=== PATIENT | female | born 1965 | race Caucasian/White ===

== ENCOUNTER → 2023-09-26 | Outpatient (CLI) | payer BC, SELFPAY ==
[2023-09-28 14:11] LABS: Lyme Scn Total Ab w/Rflx Negative (Negative)
== END | disposition home or self-care (01) ==
PROVIDERS: PCP Nurse Practitioner; Visit Provider Nurse Practitioner
DX: S80.862A Insect bite (nonvenomous), left lower leg, initial encounter (principal); W57.XXXA Bitten or stung by nonvenomous insect and other nonvenomous arthropods, initial encounter
CPT/HCPCS: 86618

== ENCOUNTER → 2025-01-23 | Outpatient (CLI) | payer BC, SELFPAY ==
--- OUTSIDE RECORDS SUMMARY | 2025-01-23 12:15 | XMS RPT_ITS | CCD ---
Author Organization [facility] CliniSymi Care Team Providers Care Figure Clerk Name Role Phone Sahara Copeland Primary Care Provider Ariel LYONS, Silvio Burrows Unavailable Sahara Copeland Primary Care Provider Ariel LYONS, Silvio Burrows Unavailable [phone] Maljimmie ALFARO, Marisela A Primary Care Provider Malys, Marisela A Primary Care Provider Silvio Tuttle MD Unavailable SILVIO TUTTLE Attending Unavailable MALYS, MARISELA Primary Care Unavailable SILVIO TUTTLE Referring Unavailable MALYS, MARISELA Primary Care Unavailable SILVIO TUTTLE Referring Unavailable SILVIO TUTTLE Attending Unavailable Mcdaniel STAMPING MACHINE OPERATOR, Albertina Attending Unavailable Mcdaniel STAMPING MACHINE OPERATOR, Albertina Primary Care Unavailable Mcdaniel STAMPING MACHINE OPERATOR-C, Albertina Primary Care Provider [phone] Mcdaniel STAMPING MACHINE OPERATOR-C, Albertina Attending Provider Mcdaniel STAMPING MACHINE OPERATOR-C, Albetrina Referring Provider Malys DO, Marisela A Primary Care Provider [phone] ASHLI ROTH Referring Unavailable MALYS, MARISELA A Primary Care Unavailable AVERELL DO~[id number], AVERELL EDWARDO Admitting Unavailable AVERELL DO, EDWARDO Primary Care Unavailable AVERELL DO~[id number], AVERELL EDWARDO Attending Unavailable AVERELL DO~[id number], AVERELL EDWARDO Admitting Unavailable MALYS, MARISELA A Primary Care Unavailable AVERELL DO~[id number], AVERELL EDWARDO Attending Unavailable AVERELL DO~[id number], AVERELL EDWARDO Attending Unavailable AVERELL DO~[id number], AVERELL EDWARDO Admitting Unavailable AVERELL DO, EDWARDO Primary Care Unavailable Allergies Allergy Classification Reported Allergen(s) Allergy Type Date of Onset Reaction(s) Facility (3 sources) diphenhydrAMINE Drug Allergy Other: See Comments [facility] Medications Current Medications Medication Drug Class(es) Dates Sig (Normalized) Sig (Original) acyclovir 50 mg/ml topical cream (2 sources) Herpesvirus Nucleoside Analog DNA Polymerase Inhibitor, Herpes Simplex Virus Nucleoside Analog DNA Polymerase Inhibitor, Herpes Zoster Virus Nucleoside Analog DNA Polymerase Inhibitor Start: 01-20-2025 acyclovir (ZOVIRAX) 5 % crea Indications: HSV-2 infection Apply 1 application to affected area five times a day. 5 g 2 01/20/2025 Active azithromycin 250 mg oral tablet (1 source) Macrolide Antimicrobial Start: 12-09-2024 take 2 tablets by mouth once daily, then take 1 tablet by mouth once daily at mealtime Azithromycin 250 mg tablet Active 250 mg PO daily 6 5 0 December 09, 2024 12:00am December 13, 2024 12:00am 2 po qd for 1 day then 1 po qd for 4 days with food or after eating estradiol 0.1 mg/ml vaginal cream (3 sources) Estrogen Start: 01-15-2025 estradiol (ESTRACE) 0.01 % (0.1 mg/gram) vaginal cream Indications: Vaginal atrophy Use 1 g vaginally two times a week. 42.5 g 2 01/15/2025 Active predniSONE 20 mg oral tablet (4 sources) Start: 01-17-2025 predniSONE (DELTASONE) 20 mg tablet 01/17/2025 Active Start: 10-25-2023 End: 12-05-2024 take 2 tablets by mouth twice daily as needed for pain, then take 1 tablet by mouth twice daily as needed for pain, then take 0.5 tablet by mouth once daily as needed for pain Prednisone 10 mg tablet Discontinued 20 mg PO TWICE A DAY as needed for shoulder pain 30 4 1 October 25, 2023 12:00am December 05, 2024 5:37pm Impingement of right shoulder Other specified joint disorders, right shoulder 2 po bid 4D,1 po bid for 4 D, 1 po qd for 4D 1/2 po qd for2 D Progesterone (14 sources) Progesterone Start: 04-25-2023 progesterone ( CPD) Indications: Hormone imbalance Progesterone Triturate 150mg: Dissolve 1 under the tongue qhs 30 Each 3 04/25/2023 Active Start: 04-24-2023 progesterone ( CPD) Indications: Hormone imbalance Progesterone Triturate 100mg: Dissolve 1 under the tongue qhs 60 Each 5 04/24/2023 Active Start: 03-08-2023 End: 04-24-2023 progesterone (CPD) Indicatio ns: Hormone imbalance Progesterone Triturate 100mg: Dissolve 1 under the tongue qhs 60 Each 0 03/08/2023 04/24/2023 Discontinued Start: 03-08-2023 progesterone ( CPD) Indications: Hormone imbalance Progesterone Triturate 100mg: Dissolve 1 under the tongue qhs 60 Each 0 03/08/2023 Active Start: 12-31-2021 End: 02-17-2023 progesterone (CPD) Indicatio ns: Hormone imbalance Progesterone Triturate 100mg: Dissolve 1 under the tongue qhs 60 Each 0 12/31/2021 02/17/2023 Discontinued Start: 12-31-2021 progesterone ( CPD) Indications: Hormone imbalance Progesterone Triturate 100mg: Dissolve 1 under the tongue qhs 60 Each 0 12/31/2021 Active Start: 04-15-2021 End: 12-31-2021 progesterone (CPD) Indicatio ns: Hormone imbalance Progesterone Triturate 100mg: Dissolve 1 under the tongue qhs 60 Each 3 04/15/2021 12/31/2021 Discontinued Progesterone Fredis ronized (PROGESTERONE PO) Take 150 mg by mouth 0 Active Comment on above: Progesterone Tritura te 100mg: Dissolve 1 under the tongue qhs Progesterone Tritura te 150mg: Dissolve 1 under the tongue qhs testosterone micronized (CPD) (7 sources) Start: 03-09-2023 testosterone micronized (CPD) Indications: Hormone imbalance Testosterone Cream 1%: Apply 0.1ml to inner thigh QAM. May also apply to clitoris and labia 20 minutes prior to intercourse. 60 Each 5 03/09/2023 Active Start: 02-17-2023 testosterone m icronized (CPD) Indications: Hormone imbalance Testosterone Cream 1%: Apply 0.1ml to inner thigh QAM. May also apply to clitoris and labia 20 minutes prior to intercourse. 60 Each 5 02/17/2023 Active Comment on above: Testosterone Cream 1 %: Apply 0.1ml to inner thigh QAM. May also apply to clitoris and labia 20 minutes prior to intercourse. valACYclovir 500 mg oral tablet (3 sources) Herpesvirus Nucleoside Analog DNA Polymerase Inhibitor, Herpes Simplex Virus Nucleoside Analog DNA Polymerase Inhibitor, Herpes Zoster Virus Nucleoside Analog DNA Polymerase Inhibitor Start: 01-17-2025 valACYclovir (VALTREX) 500 mg tablet Indications: HSV-2 infection Take 1 tablet daily for suppression or 1 tablet twice daily x 3d at first symptom of outbreak 90 tablet 3 01/17/2025 Active Problems Problem Classification Problem Date Documented Da te Episodic/Chronic E Codes: Natural/environment (9 sources) Tick bite; Translations: [Bitten or stung by nonvenomous insect and other nonvenomous arthropods, initial encounter] Onset: 01-20-2025 09-26-2023 Episodic Meningitis (except that caused by tuberculosis or sexually transmitted disease) (3 sources) Chronic meningitis; Translations: [CHRONIC MENINGITIS] Onset: 01-14-2025 Episodic Other ear and sense organ disorders (3 sources) Hearing loss; Translations: [Unspecified hearing loss, unspecified ear] Onset: 01-20-2025 01-20-2025 Chronic Other ear and sense organ disorders (2 sources) Hearing loss; Translations: [Impacted cerumen, unspecified ear] 12-05-2024 Episodic Other ear and sense organ disorders (5 sources) Impacted cerumen; Translations: [Impacted cerumen, bilateral] Onset: 01-20-2025 12-05-2024 Episodic Other ear and sense organ disorders (4 sources) Clicking tinnitus; Translations: [Tinnitus, unspecified ear] Onset: 01-20-2025 12-06-2024 Episodic Other ear and sense organ disorders (1 source) Tinnitus; Translations: [Tinnitus, unspecified ear] 12-09-2024 Episodic Other endocrine disorders (4 sources) Disorder of endocrine system; Translations: [Endocrine disorder, unspecified] Episodic Other infections; including parasitic (2 sources) Lyme disease, unspecified; Translations: [LYME DISEASE UNSPECIFIED] Onset: 01-22-2025 Episodic Other non-traumatic joint disorders (5 sources) Disorder of shoulder; Translations: [Other specified joint disorders, right shoulder] Onset: 01-20-2025 10-25-2023 Episodic Other screening for suspected conditions (not mental disorders or infectious disease) (14 sources) Cancer cervix screening status; Translations: [Encounter for screening for malignant neoplasm of cervix] Onset: 03-16-2023 02-17-2023 Episodic Residual codes; unclassified (4 sources) Menopause present; Translations: [Asymptomatic menopausal state] 02-17-2023 Episodic Residual codes; unclassified (2 sources) Asymptomatic menopausal state; Translations: [Asymptomatic menopausal state] Onset: 03-16-2023 Episodic Superficial injury; contusion (1 source) Insect bite (nonvenomous), left lower leg, initial encounter; Translations: [Insect bite (nonvenomous), left lower leg, initial encounter] Onset: 10-05-2023 Episodic Viral infection (2 sources) Herpes simplex type 2 infection; Translations: [Herpesviral infection, unspecified] 01-20-2025 Episodic Results Test Name Value Interpretation Reference Range Facility ISAMAR - CSFon 01-14-2025 Angiotensin Converting Enzyme CSF 2.8 U/L High 0.0-2.5 [facility] Comment on above: Result Comment: This test was developed and its performance characteristics determined by [facility]. It has not been cleared or approved by the [place] Food and Drug Administration. This test was performed in a CLIA certified laboratory and is intended for clinical purposes. Performed By: [facility] [address] [place] [address] Reports Analysis Manager: Wade Hsieh MD, PhD CLIA Number: [id number] Performed By: #### A CECSF #### Counts include 234 beds at the [facility] [address] [place], [place] [id number] VDRL - CSFon 01-14-2025 VDRL, CSF Non-Reactive Normal Non Nikki:<1:1 [facility] Comment on above: Order Comment: Perfo rmed at: BN - [facility] [address] [id number] Turning Machine Set Up Operator: Sary Garay MD, Phone: [phone] Performed By: #### V DRLCSF #### [facility] RESULTS Cell Count w/ Diff CSFon CSF Tube # 4 Normal [facility] Comment on above: Order Comment: CSF T ube acceptable for m ost CSF. Use Lav EDTA if grossly bloody. Performed By: #### C TDIFCS #### [facility] [address] [place], [place] [id number] Gran 15 % [facility] Comment on above: Order Comment: CSF T ube acceptable for m ost CSF. Use Lav EDTA if grossly bloody. Performed By: #### C TDIFCS #### [facility] [address] [place] [address] Lymphocytes/100 WBC (Bld) 73 % [facility] Comment on above: Order Comment: CSF T ube acceptable for m ost CSF. Use Lav EDTA if grossly bloody. Performed By: #### C TDIFCS #### [facility] [address] [place] [address] Others 12 % [facility] Comment on above: Order Comment: CSF T ube acceptable for m ost CSF. Use Lav EDTA if grossly bloody. Result Comment: mono s/macros Performed By: #### C TDIFCS #### [facility] [address] [place], [place] [id number] RBCs 635 /cumm [facility] Comment on above: Order Comment: CSF T ube acceptable for m ost CSF. Use Lav EDTA if grossly bloody. Performed By: #### C TDIFCS #### [place] [id number] WBCs 6 /cumm [facility] Comment on above: Order Comment: CSF T ube acceptable for m ost CSF. Use Lav EDTA if grossly bloody. Performed By: #### C TDIFCS #### [place] [address] Culture CSF w/ Gram Stainon 01-10-2025 Culture CSF w/ Gram Stain Culture Observations:--------- --- No growth after 3 days of incubation. Direct Exam: Small numbers of WBCs No organisms seen Susceptibility Data: [facility] Comment on above: Order Comment: FREDIS lee at additional charge when indicated Performed By: #### G LUCCSF, PROTCSF #### [facility] [address] [place] [address] Glucose - CSFon 01-10-2025 Glucose CSF 60 mg/dL Normal 40-70 [facility] Comment on above: Performed By: #### Belen LUCCSF, PROTCSF #### [facility] [address] [place] [address] Lab - Miscellaneouson 2024 Performing Lab [facility] Comment on above: Order Comment: B-2 M icroglobulin CSF Performed By: #### M ISC #### [facility] [address] [place] [address] Ref Range 0.0-2.4 mg/L [facility] Comment on above: Order Comment: B-2 M icroglobulin CSF Performed By: #### Darcy ISC #### [facility] [address] [place] [address] Result 2.2 mg/L [facility] Comment on above: Order Comment: B-2 M icroglobulin CSF Performed By: #### Darcy ISC #### [facility] [address] [place] [address] Result cont. [facility] Comment on above: Order Comment: B-2 M icroglobulin CSF Performed By: #### M ISC #### [facility] [address] [place], [place] [id number] Test Name BETA-2 MICROGLOBULIN , CSF [facility] Comment on above: Order Comment: B-2 M icroglobulin CSF Performed By: #### M ISC #### [facility] [address] [place], [place] [id number] Lab - Miscellaneous 1on Performing Lab [facility] Comment on above: Order Comment: Paran enplastic Auto AB CS F Performed By: #### G LUCCSF, PROTCSF #### [facility] [address] [place] [address] Ref Range Negative Invalid Interpretation [facility] Comment on above: Order Comment: Paran enplastic Auto AB CS F Performed By: #### G LUCCSF, PROTCSF #### [facility] [address] [place] [address] Result Negative Invalid Interpretation [facility] Comment on above: Order Comment: Paran enplastic Auto AB CS F Performed By: #### G LUCCSF, PROTCSF #### [facility] [address] [place], [place] [id number] Result cont. THE COMPLETE REPORT WILL BE SENT FOR YOUR RECORDS [facility] Comment on above: Order Comment: Paran enplastic Auto AB CS F Performed By: #### G LUCCSF, PROTCSF #### [facility] [address] [place], [place] [id number] Test Name PARANEOPLASTIC PANEL , CSF Normal [facility] Comment on above: Order Comment: Paran enplastic Auto AB CS F Performed By: #### G LUCCSF, PROTCSF #### [place] [id number] Non-director digital advertising cytology studyon Non-gynecological cytology method study Pathology report.total SEE COMMENT Non-gynecologic Cytology Case: [id number] Authorizing Provider: Edwardo Carvajal DO Collected: 01/10/2025 0808 Ordering Location: [facility] Received: 01/10/2025 1407 Center Pathologist: Jose Potts MD Specimen: CEREBROSPINAL FLUID, CSF lumbar Path report.final diagnosis SEE COMMENT A. CEREBROSPINAL FLUID- CSF lumbar No malignant cells identified Specimen has increased population of lymphocytes at 1456 EDT Laboratory comment SEE COMMENT Slide(s) initially screened by SEAN Valentino at [facility] [address] [facility] [id number] By the signature on this report, the individual or group listed as making the Final Interpretation/Diagnos is certifies that they have reviewed this case. Path report.relevant Hx Chronic meningitis Path report.gross observation SEE COMMENT A. CEREBROSPINAL FLUID. Received <1 ml colorless clear fluid without particles in sterile tube . Laboratory comment SEE COMMENT A1 Slides Only (No Block) A1-1 Pap Stain NGYN ThinPrep Normal [facility] Protein - CSFon 01-10-2025 Protein CSF 45 mg/dL Normal 15-45 [facility] Comment on above: Performed By: #### G LUCCSF, PROTCSF #### [facility] [address] [place], [place] [phone] QuantiFERON -TB Gold Pluson 01-10-2025 QuantiFERON Criteria Comment Normal [facility] Comment on above: Order Comment: Quant iferon Draw kit requ ired! Shake each tube 10x just firmly enough to ensure entire inner surf of tube is coated w/ blood. Avoid vigorous shaking! Performed at: - [facility] [place] [address] [place], [place] [id number] Turning Machine Set Up Operator: Jamarcus Echols PhD, Phone: [phone] Result Comment: Olu tiFERON-TB Gold Plus is a qualitative indirect test for M tuberculosis infection (including disease) and is intended for use in conjunction with risk assessment, radiography, and other medical and diagnostic evaluations. The QuantiFERON-TB Gold Plus result is determined by subtracting the Nil value from either TB antigen (Ag) value. The Mitogen tube serves as a control for the test. Performed By: #### Q NFERNP #### [facility] RESULTS QuantiFERON Mitogen Value >10.00 [facility] Comment on above: Order Comment: Quant iferon Draw kit requ ired! Shake each tube 10x just firmly enough to ensure entire inner surf of tube is coated w/ blood. Avoid vigorous shaking! Performed at: [place] [address] Turning Machine Set Up Operator: Jamarcus Echols PhD, Phone: [phone] Performed By: #### Q NFERNP #### [facility] RESULTS QuantiFERON Nil Value 0.04 IU/mL Normal [facility] Comment on above: Order Comment: Quant iferon Draw kit requ ired! Shake each tube 10x just firmly enough to ensure entire inner surf of tube is coated w/ blood. Avoid vigorous shaking! Performed at: [place] [address] Turning Machine Set Up Operator: Jamarcus Echols PhD, Phone: [phone] Performed By: #### Q NFERNP #### [facility] RESULTS QuantiFERON TB1 Ag Value 0.05 IU/mL [facility] Comment on above: Order Comment: Quant iferon Draw kit requ ired! Shake each tube 10x just firmly enough to ensure entire inner surf of tube is coated w/ blood. Avoid vigorous shaking! Performed at: [place] [address] Turning Machine Set Up Operator: Jamarcus Echols PhD, Phone: [phone] Performed By: #### Q NFERNP #### [facility] RESULTS QuantiFERON TB2 Ag Value 0.03 IU/mL [facility] Comment on above: Order Comment: Quant iferon Draw kit requ ired! Shake each tube 10x just firmly enough to ensure entire inner surf of tube is coated w/ blood. Avoid vigorous shaking! Performed at: [place] [address] Turning Machine Set Up Operator: Jamarcus Echols PhD, Phone: [phone] Performed By: #### Q NFERNP #### [facility] RESULTS QuantiFERON-TB Gold Plus Negative Normal Negative [facility] Comment on above: Order Comment: Quant iferon Draw kit requ ired! Shake each tube 10x just firmly enough to ensure entire inner surf of tube is coated w/ blood. Avoid vigorous shaking! Performed at: [facility] [id number] Turning Machine Set Up Operator: Jamarcus Echols PhD, Phone: [phone] Result Comment: No r esponse to M tuberculosis antigens detected. Infection with M tuberculosis is unlikely, but high risk individuals should be considered for additional testing (ATS/IDSA/CDC Clinical Practice Guidelines, 2017). The reference range is an Antigen minus Nil result of <0.35 IU/mL. The specimen received for QuantiFERON testing was incubated by the ordering institution. Specific procedures outlined in our Directory of Services and in the package insert for the QuantiFERON Gold (In Tube) test must be followed to enable for proper stimulation of cells for the production of interferon gamma. Chemiluminescence immunoassay methodology Performed By: #### Q NFERNP #### [facility] RESULTS XR Lumbar Puncture Diagnosti [facility] 01-10-2025 XR Lumbar Puncture Diagnostics EXAMINATION: LUMBAR PUNCTURE UNDER FLUOROSCOPY CLINICAL INFORMATION: Visual disturbance. Headaches. Evaluate for meningitis. Prior to the procedure, the details of the examination were explained to the patient. She understands the risks, alternative, and benefits and wishes to proceed. Informed written consent is obtained and placed in the chart. ANESTHESIA: Local anesthesia was maintained with Lidocaine. FLUOROSCOPY DOSE: Ka,r = 0.363 mGy, 0.1 minutes, 0 cine run(s), and 1 fluoro spot(s) captured. PROCEDURE: The patient was placed prone on the fluoroscopic table. A site was picked for percutaneous lumbar puncture. This area was prepped and draped in the usual fashion. Under fluoroscopic guidance a 20 gauge spinal needle was advanced without difficulty into the CSF space posterior to the L3 vertebral body. The tap was mildly traumatic. Approximately 17 ml of clearing CSF was obtained. There were no immediate complications. IMPRESSION: 1. Successful lumbar puncture under fluoroscopy. The tap was mildly traumatic. Approximately 17 ml of blood tinged but clearing CSF was sent to the laboratory for analysis. Report Dictated on Authenticated by: David Rodriguez On: 01/10/2025 10:10 Read by: DAVID RODRIGUEZ MD, MD Date: 01/10/2025 10:10 [facility] Comment on above: Order Comment: branden nt needs PT / INR lab prior to test ACEon 01-09-2025 ISAMAR 33 U/L Normal 14-82 [facility] Comment on above: Order Comment: Stop administration of ca ptopril, enalapril, or lisinopril for 12 hours prior to venipuncture (reduces ISAMAR activity). Performed at: [facility] [id number] Turning Machine Set Up Operator: Jamarcus Echols PhD, Phone: [phone] Performed By: #### A CE, CCPIGGA #### [facility] RESULTS AMANDO -reflex to Titer & Patte rnon 01-09-2025 Antinuclear Antibodies, IFA Negative [facility] Comment on above: Order Comment: Perfo rmed at: [address] [id number] Turning Machine Set Up Operator: Jamarcus Echols PhD, Phone: [phone] Result Comment: Nega tive <1:80 Borderline 1:80 Positive >1:80 ICAP nomenclature: AC-0 For more information about Hep-2 cell patterns use ANApatterns.org, the official website for the International Consensus on Antinuclear Antibody (AMANDO) Patterns (ICAP). Performed By: #### A NA #### [facility] RESULTS C-Reactive Protein [facility] 01-09-2025 hs-CRP (Cardiac) 0.45 mg/L Normal 0.00-3.00 [facility] Comment on above: Order Comment: Perfo rmed at: [facility] [id number] Director: Jamarcus Echols PhD, Phone: [phone] Result Comment: Rela tive Risk for Future Cardiovascular Event Low <1.00 Average 1.00 - 3.00 High >3.00 Performed By: #### G LUCCSF, PROTCSF #### [facility] [address] [place] [address] CCP IgG/IgA Abson 01-09-2025 CCP Antibodies IgG/IgA 5 units Normal 0-19 [facility] Comment on above: Order Comment: Perfo rmed at: [facility] [address] [place], [place] [id number] Turning Machine Set Up Operator: Jamarcus Echols PhD, Phone: [phone] Result Comment: Nega tive <20 Weak positive 20 - 39 Moderate positive 40 - 59 Strong positive >59 Performed By: #### A CE, CCPIGGA #### [facility] RESULTS HIV-1/0/2 Ag/Ab 4th Gen w/ R eflexon 01-09-2025 HIV Screen 4th Generation with Reflex Non-Reactive Normal Non Reactive [facility] Comment on above: Order Comment: Perfo rmed at: [facility] [place], [place] [id number] Director: Jamarcus Echols PhD, Phone: [phone] Result Comment: HIV- 1/HIV-2 antibodies and HIV-1 p24 antigen were NOT detected. There is no laboratory evidence of HIV infection. HIV Negative Performed By: #### G LUCCSF, PROTCSF #### [address] [address] Rheumatoid Factor (Quant)on 01-07-2025 Rheumatoid Factor <12 Normal <=13 [facility] Comment on above: Performed By: #### G LUCCSF, PROTCSF #### [place] [id number] Sed Rate - Westergrenon 07- Sed Rate 2 mm/hr Normal 0-20 [facility] Comment on above: Performed By: #### G LUCCSF, PROTCSF #### [place] [id number] MRI BRAIN IAC WO/W IVCONon 0 12-31-2024 MRI BRAIN IAC WO/W IVCON * * *Final Report* * * DATE OF EXAM: Dec 31 2024 2:47PM [facility] 0285 - MRI BRAIN IAC WO/W IVCON / PROCEDURE REASON: hearing loss, sudden right * * * * Physician Interpretation * * * * EXAMINATION: MRI BRAIN IAC WO/W IVCON CLINICAL HISTORY: Right ear. Loss and tinnitus. TECHNIQUE: Routine MRI of the brain and internal auditory canals without and with contrast. MQ: [id number] Contrast: 7.5 mL Elucirem IV COMPARISON: None. RESULT: IAC : There is no evidence of a mass in the region of either IAC or elsewhere in the posterior fossa. There is no abnormal enhancement is noted in the basilar cisterns, along the course of the 7/8 cranial nerve complexes, or in the region of the inner ear complexes. Inner ear structures appear to be within normal limits on the high resolution axial CISS sequence. There is no clear evidence of vascular compression. Acute Change: There is no evidence of restricted diffusion to suggest an acute infarct. Hemorrhage: No evidence of prior parenchymal hemorrhage on the gradient echo images. Mass Lesion/ Mass Effect: There is trace up to 3 mm right and 2 mm left cerebral hemispheric convexity smooth linear FLAIR hyperintensities, which represent small extra-axial subdural fluid collections less likely reactive changes. There is diffuse linear pachymeningeal enhancement and thickening along the bilateral cerebral and cerebellar convexities, along the falx and the tentorial leaflets. Chronic Change: The white matter is within normal limits of signal intensity for age. Parenchyma: No significant volume loss for age. The brain parenchyma is otherwise within normal limits of signal intensity and morphology. Ventricles: Normal caliber and morphology. Skull Base: Hypothalamic and pituitary region are grossly normal. Craniocervical junction is normal. No significant marrow replacement process. Other: The visualized paranasal sinuses and mastoid air cells are clear. The orbits and extracranial soft tissues are unremarkable. IMPRESSION: No evidence of a mass in the region of either IAC or elsewhere in the posterior fossa. Trace bilateral cerebral hemispheric convexity FLAIR hyperintensities, which may represent small extra-axial subdural fluid collections or less likely reactive change. Diffuse linear pachymeningeal enhancement and thickening along the bilateral cerebral and cerebellar convexities, along the falx and the tentorial leaflets. These findings are nonspecific but may be related to intracranial hypotension in the setting of small subdural fluid collections or may represent hypertrophic pachymeningitis. ACTIONABLE RESULT: FOLLOW-UP Acuity: Actionable Findings: Neurological System-BRAIN Routing Code: NI_1 Recommendation: Unlisted Recommendation (see report) TimeFrame: At the discretion of the clinical team. COMMUNICATION: Results will be communicated with the ordering provider via [employer] staff message by Imaging Support Services within 2 business days of report finalization. Algorithms for management of incidental imaging findings can be found on the [facility] Intranet Sharepoint site at: [email or web address] [email or web address] Certified Scrub Tech: UMBERTO Transcribe Date/Time: Dec 31 2024 3:01P Dictated by : JANELLE DURAN MD This examination was interpreted and the report reviewed and electronically signed by: JANELLE DURAN MD on Dec 31 2024 3:40PM EST [id number] ACTIONABLE Invalid Interpretation Code [facility] Lyme Screen W/Reflex WBon LYME SCREEN Ab Negative Normal Negative [facility] Comment on above: Result Comment: Lyme antibodies not detected. Reflex testing is not indicated. No laboratory evidence of infection with B. burgdorferi (Lyme disease). Negative results may occur in patients recently infected (less than or equal to 14 days) with B. burgdorferi. If recent infection is suspected, repeat testing on a new sample collected in 7 to 14 days is recommended. Performed at: [facility] [id number] Turning Machine Set Up Operator: Jamarcus Echols PhD, Phone: [phone] Performed By: #### L [id number] #### [facility] [address]. [place], [place], [id number] No Panel InformationOrdered By: Albertina Mcdaniel on 09-26-2023 Lyme Disease Total Antibody Negative Negative [facility] Comment on above: Lyme antibodies not detected. Reflex testing is notindicated.No laboratory evidence of infection with B. burgdorferi(Lyme disease). Negative results may occur in patientsrecently infected (less than or equal to 14 days) with B.burgdorferi. If recent infection is suspected, repeattesting on a new sample collected in 7 to 14 days isrecommended.Performed at: [facility] [id number] Director: Jamarcus Echols PhD, Phone: [phone] DBT Breast - bilateral scree ningon 04-14-2023 No mammographic evidence of malignancy. ASSESSMENT: Category 1 Negative RECOMMENDATION: Routine screening mammogram in 1 year. Bilateral CANCER RISK ASSESSMENT: This risk assessment is based on patient provided information collected in a risk survey taken at the time of this examination. LIFETIME BREAST CANCER RISK: [place]: 18.17% - If greater than or equal to 20%, consider annual mammogram and annual screening Breast MRI or follow up in high risk clinic. Is the patient at elevated risk based on the HBOC criteria? NCCN HBOC Guidelines: 100% (Hereditary Breast and Ovarian Cancer) - If 100%, consider genetic counseling and testing with high risk follow up. Is the patient at elevated risk based on the Lopez Syndrome criteria? NCCN Lopez: 0% - If 100%, consider genetic counseling and testing with high risk follow up. Report Dictated on Electronically Signed By: David Gusman MD Electronically Signed Date/Time: 04/14/2023 1:42 PM EDT [facility] Patient Name: LUCY MONTERO : 1965 Exam Date/Time: 04/14/2023 13:15 Procedure: BI MAMMOGRAM SCREENING TOMOSYNTHESIS BILATERAL Ordering Provider: TUTTLE SUSAN Reason For Exam: screening Image views: 2D Bilateral CC and MLO views were acquired. 3D Bilateral CC and MLO views were acquired. Images were reviewed with CAD. Markings on images: BB's = Nipples; skin lesions Open tonkawa = Palpable Line = Scar COMPARISON: 11/19/2020 and prior TISSUE DENSITY: BIRADS B - There are scattered fibroglandular densities. FINDINGS: No suspicious masses, architectural distortions or suspiciously clustered microcalcifications are identified. There is no evidence of skin thickening or nipple retraction. There are no significant changes when compared with prior studies. [facility] David Gusman MD - 04/14/2023 Patient Name: LUCY MONTERO : 1965 Exam Date/Time: 04/14/2023 13:15 Procedure: BI MAMMOGRAM SCREENING TOMOSYNTHESIS BILATERAL Ordering Provider: TUTTLE SUSAN Reason For Exam: screening Image views: 2D Bilateral CC and MLO views were acquired. 3D Bilateral CC and MLO views were acquired. Images were reviewed with CAD. Markings on images: BB's = Nipples; skin lesions Open tonkawa = Palpable Line = Scar COMPARISON: 11/19/2020 and prior TISSUE DENSITY: BIRADS B - There are scattered fibroglandular densities. FINDINGS: No suspicious masses, architectural distortions or suspiciously clustered microcalcifications are identified. There is no evidence of skin thickening or nipple retraction. There are no significant changes when compared with prior studies. IMPRESSION: No mammographic evidence of malignancy. ASSESSMENT: Category 1 Negative RECOMMENDATION: Routine screening mammogram in 1 year. Bilateral CANCER RISK ASSESSMENT: This risk assessment is based on patient provided information collected in a risk survey taken at the time of this examination. LIFETIME BREAST CANCER RISK: [place]: 18.17% - If greater than or equal to 20%, consider annual mammogram and annual screening Breast MRI or follow up in high risk clinic. Is the patient at elevated risk based on the HBOC criteria? NCCN HBOC Guidelines: 100% (Hereditary Breast and Ovarian Cancer) - If 100%, consider genetic counseling and testing with high risk follow up. Is the patient at elevated risk based on the Lopez Syndrome criteria? NCCN Lopez: 0% - If 100%, consider genetic counseling and testing with high risk follow up. Report Dictated on Electronically Signed By: David Gusman MD Electronically Signed Date/Time: 04/14/2023 1:42 PM EDT [facility] Radiology Study observation (narrative) [employer] [facility] DBT Breast - bilateral scree ningOrdered By: David Gusman on 04-14-2023 [employer] Work Phone: DEXA BONE DENSITY AXIAL SKEL ETONon 03-16-2023 DEXA BONE DENSITY AXIAL SKELETON Patient Name: LUCY MONTERO : 1965 Exam Date/Time: 03/16/2023 13:08 Procedure: DEXA BONE DENSITY AXIAL SKELETON Ordering Provider: ARIEL, , SILVIO Reason For Exam: screening DXA BONE DENSITOMETRY: CLINICAL INDICATION: Asymptomatic post-menopausal status. Screening for osteoporosis. COMPARISON: 11/19/2020 TECHNIQUE: Quantitative bone mineral densitometry of the hip and lumbar spine was performed with a dual energy x-ray observed absorptiometry device - Quick Key at some institutions, HOLOGIC at others. Regions of interest were obtained through the proximal femur and compared to the normal value of young adult women. Regions of interest were also obtained through the lumbar vertebrae with an average value determined and compared to the normal value of young adult women. The difference between your measured bone density and the bone density of a normal young woman is expressed in standard deviations as the T score. Similarly, your measured bone density is also compared to age and race matched values, and expressed in standard deviations as the Z score. According to World Health Organization criteria: T-score of -1.0 or higher is normal. T-score between -1.1 to < -2.5 is low bone density or osteopenia. T-score of -2.5 or lower is abnormally low, compatible with osteoporosis. T-score of -2.5 or less plus fragility fracture indicates severe osteoporosis. FINDINGS: Femoral neck LEFT Density: 0.804 g/cm2 T-score: -0.4 Z-score: 0.7 Total Hip LEFT Density: 1.021 g/cm2 T-score: 0.6 Z-score: 1.3 Comparison from prior examination: The bone mineralization has not significantly changed when compared to the previous study. Spine: L1-L4 Density 1.088 g/cm2 T-score: 0.4 Z-score: 1.5 Comparison from prior examination: The bone mineralization has not significantly changed when compared to the previous study. IMPRESSION: 1. Normal bone mineralization. 2. The bone mineralization has not significantly changed when compared to the previous study. FRACTURE RISK: The estimated 10 year risk for a hip fracture is 0.3% and for a major osteoporosis-related fracture is 9.1%. (FRAX web version 3.11). RECOMMENDATIONS: General recommendations for prevention of bone loss include: 4379-7206 mg calcium intake per day for adults >50yrs, and no history of renal calculi 800-1000 IU of vitamin D3 per day for adults >50yrs, and no history of renal calculi Weight bearing exercise Discontinue smoking Avoid excessive use of caffeine, soft drinks, and alcoholic beverages In addition, balance training and fall prevention programs can help reduce the risk of fractures Pharmacologic treatment recommendations: Initiate pharmacologic treatment in patients with hip or vertebral fracture. In those with T scores In postmenopausal women and men age 50 or older with low bone mass (T score between -1.0 and -2.5 [osteopenia]) at the femoral neck, total hip, or lumbar spine by DXA have a 10 year hip fracture probability >/= 3% or a 10 year major osteoporosis-related fracture probability >/= 20% based on the [place]-adapted WHO fracture risk model (FRAX). Current FDA-approved pharmacologic options for osteoporosis treatment include bisphosphonates (Fosamax), ibandronate (Boniva), risedronate (Actonel), zoledronic acid (Reclast), estrogens and other hormonal therapies (Evista), parathyroid hormone (Forteo), and denosumab (Prolia). Initiation of pharmacologic therapy should happen only after thorough medical evaluation, discussion of risks and benefits, and with regular monitoring of the therapeutic regimen. Follow-up recommendations: Patients with osteoporosis or or at high risk for fracture should have follow-up bone density tests. For Medicare patients, routine testing is allowed every 2 years. Patients who have low bone mass (T score -2.0 to -2.49), who are currently on treatment for low bone mass, or having risk factors for accelerated bone loss (glucocorticoids, aromatase inhibitors, etc.), consider repeat DXA in 1-2 years. Patients with osteopenia and no risk factors may consider follow-up every 3-5 years. References: National Osteoporosis Foundation. Clinician's Guide to Prevention and Treatment of Osteoporosis. Osteoporosis International. Whyte, 2014. DXA Scan Screening, Reporting (FRAX Score) and Follow-up. Sheila of Knowledge Evidence - based Summaries. [facility] [employer] for Education and Research 2017. Report Dictated on Electronically Signed By: David Rodriguez MD Electronically Signed Date/Time: 03/16/2023 3:28 PM EDT Normal [facility] DXA Skeletal system.axial Vi ews for bone densityon 03-16-2023 1. Normal bone mineralization. 2. The bone mineralization has not significantly changed when compared to the previous study. FRACTURE RISK: The estimated 10 year risk for a hip fracture is 0.3% and for a major osteoporosis-related fracture is 9.1%. (FRAX web version 3.11). RECOMMENDATIONS: General recommendations for prevention of bone loss include: 5364-1309 mg calcium intake per day for adults >50yrs, and no history of renal calculi 800-1000 IU of vitamin D3 per day for adults >50yrs, and no history of renal calculi Weight bearing exercise Discontinue smoking Avoid excessive use of caffeine, soft drinks, and alcoholic beverages In addition, balance training and fall prevention programs can help reduce the risk of fractures Pharmacologic treatment recommendations: Initiate pharmacologic treatment in patients with hip or vertebral fracture. In those with T scores In postmenopausal women and men age 50 or older with low bone mass (T score between -1.0 and -2.5 [osteopenia]) at the femoral neck, total hip, or lumbar spine by DXA have a 10 year hip fracture probability >/= 3% or a 10 year major osteoporosis-related fracture probability >/= 20% based on the [place]-adapted WHO fracture risk model (FRAX). Current FDA-approved pharmacologic options for osteoporosis treatment include bisphosphonates (Fosamax), ibandronate (Boniva), risedronate (Actonel), zoledronic acid (Reclast), estrogens and other hormonal therapies (Evista), parathyroid hormone (Forteo), and denosumab (Prolia). Initiation of pharmacologic therapy should happen only after thorough medical evaluation, discussion of risks and benefits, and with regular monitoring of the therapeutic regimen. Follow-up recommendations: Patients with osteoporosis or or at high risk for fracture should have follow-up bone density tests. For Medicare patients, routine testing is allowed every 2 years. Patients who have low bone mass (T score -2.0 to -2.49), who are currently on treatment for low bone mass, or having risk factors for accelerated bone loss (glucocorticoids, aromatase inhibitors, etc.), consider repeat DXA in 1-2 years. Patients with osteopenia and no risk factors may consider follow-up every 3-5 years. References: National Osteoporosis Foundation. Clinician's Guide to Prevention and Treatment of Osteoporosis. Osteoporosis International. Whyte, 2014. DXA Scan Screening, Reporting (FRAX Score) and Follow-up. Sheila of Knowledge Evidence - based Summaries. [facility] [employer] for Education and Research 2017. Report Dictated on Electronically Signed By: David Rodriguez MD Electronically Signed Date/Time: 03/16/2023 3:28 PM EDT [facility] 1965 [id number] Exam Date/Time: 03/16/2023 13:08 Procedure: DEXA BONE DENSITY AXIAL SKELETON Ordering Provider: TUTTLE SUSAN Reason For Exam: screening DXA BONE DENSITOMETRY: CLINICAL INDICATION: Asymptomatic post-menopausal status. Screening for osteoporosis. COMPARISON: 11/19/2020 TECHNIQUE: Quantitative bone mineral densitometry of the hip and lumbar spine was performed with a dual energy x-ray observed absorptiometry device - Quick Key at some institutions, HOLOGIC at others. Regions of interest were obtained through the proximal femur and compared to the normal value of young adult women. Regions of interest were also obtained through the lumbar vertebrae with an average value determined and compared to the normal value of young adult women. The difference between your measured bone density and the bone density of a normal young woman is expressed in standard deviations as the T score. Similarly, your measured bone density is also compared to age and race matched values, and expressed in standard deviations as the Z score. According to World Health Organization criteria: T-score of -1.0 or higher is normal. T-score between -1.1 to < -2.5 is low bone density or osteopenia. T-score of -2.5 or lower is abnormally low, compatible with osteoporosis. T-score of -2.5 or less plus fragility fracture indicates severe osteoporosis. FINDINGS: Femoral neck LEFT Density: 0.804 g/cm2 T-score: -0.4 Z-score: 0.7 Total Hip LEFT Density: 1.021 g/cm2 T-score: 0.6 Z-score: 1.3 Comparison from prior examination: The bone mineralization has not significantly changed when compared to the previous study. Spine: L1-L4 Density 1.088 g/cm2 T-score: 0.4 Z-score: 1.5 Comparison from prior examination: The bone mineralization has not significantly changed when compared to the previous study. [employer] David Rodriguez MD - 03/16/2023 Patient Name: LUCY MONTERO : 1965 [facility]#: [id number] Exam Date/Time: 03/16/2023 13:08 Procedure: DEXA BONE DENSITY AXIAL SKELETON Ordering Provider: TUTTLE SUSAN Reason For Exam: screening DXA BONE DENSITOMETRY: CLINICAL INDICATION: Asymptomatic post-menopausal status. Screening for osteoporosis. COMPARISON: 11/19/2020 TECHNIQUE: Quantitative bone mineral densitometry of the hip and lumbar spine was performed with a dual energy x-ray observed absorptiometry device - Quick Key at some institutions, HOLOGIC at others. Regions of interest were obtained through the proximal femur and compared to the normal value of young adult women. Regions of interest were also obtained through the lumbar vertebrae with an average value determined and compared to the normal value of young adult women. The difference between your measured bone density and the bone density of a normal young woman is expressed in standard deviations as the T score. Similarly, your measured bone density is also compared to age and race matched values, and expressed in standard deviations as the Z score. According to World Health Organization criteria: T-score of -1.0 or higher is normal. T-score between -1.1 to < -2.5 is low bone density or osteopenia. T-score of -2.5 or lower is abnormally low, compatible with osteoporosis. T-score of -2.5 or less plus fragility fracture indicates severe osteoporosis. FINDINGS: Femoral neck LEFT Density: 0.804 g/cm2 T-score: -0.4 Z-score: 0.7 Total Hip LEFT Density: 1.021 g/cm2 T-score: 0.6 Z-score: 1.3 Comparison from prior examination: The bone mineralization has not significantly changed when compared to the previous study. Spine: L1-L4 Density 1.088 g/cm2 T-score: 0.4 Z-score: 1.5 Comparison from prior examination: The bone mineralization has not significantly changed when compared to the previous study. IMPRESSION: 1. Normal bone mineralization. 2. The bone mineralization has not significantly changed when compared to the previous study. FRACTURE RISK: The estimated 10 year risk for a hip fracture is 0.3% and for a major osteoporosis-related fracture is 9.1%. (FRAX web version 3.11). RECOMMENDATIONS: General recommendations for prevention of bone loss include: 4742-6635 mg calcium intake per day for adults >50yrs, and no history of renal calculi 800-1000 IU of vitamin D3 per day for adults >50yrs, and no history of renal calculi Weight bearing exercise Discontinue smoking Avoid excessive use of caffeine, soft drinks, and alcoholic beverages In addition, balance training and fall prevention programs can help reduce the risk of fractures Pharmacologic treatment recommendations: Initiate pharmacologic treatment in patients with hip or vertebral fracture. In those with T scores spine by DXA In postmenopausal women and men age 50 or older with low bone mass (T score between -1.0 and -2.5 [osteopenia]) at the femoral neck, total hip, or lumbar spine by DXA have a 10 year hip fracture probability >/= 3% or a 10 year major osteoporosis-related fracture probability >/= 20% based on the [place]-adapted WHO fracture risk model (FRAX). Current FDA-approved pharmacologic options for osteoporosis treatment include bisphosphonates (Fosamax), ibandronate (Boniva), risedronate (Actonel), zoledronic acid (Reclast), estrogens and other hormonal therapies (Evista), parathyroid hormone (Forteo), and denosumab (Prolia). Initiation of pharmacologic therapy should happen only after thorough medical evaluation, discussion of risks and benefits, and with regular monitoring of the therapeutic regimen. Follow-up recommendations: Patients with osteoporosis or or at high risk for fracture should have follow-up bone density tests. For Medicare patients, routine testing is allowed every 2 years. Patients who have low bone mass (T score -2.0 to -2.49), who are currently on treatment for low bone mass, or having risk factors for accelerated bone loss (glucocorticoids, aromatase inhibitors, etc.), consider repeat DXA in 1-2 years. Patients with osteopenia and no risk factors may consider follow-up every 3-5 years. References: National Osteoporosis Foundation. Clinician's Guide to Prevention and Treatment of Osteoporosis. Osteoporosis International. Whyte, 2014. DXA Scan Screening, Reporting (FRAX Score) and Follow-up. Sheila of Knowledge Evidence - based Summaries. [employer] for Education and Research 2017. Report Dictated on Electronically Signed By: David Rodriguez MD Electronically Signed Date/Time: 03/16/2023 3:28 PM EDT [facility] Study observation (narrative) [facility] DXA Skeletal system.axial Vi ews for bone densityOrdered By: David Rodriguez on 03-16-2023 [facility] Work Phone: MG Breast Tomosynthesis Scr Blon 11-19-2020 MG Breast Tomosynthesis Scr Bl Patient Name: LUCY MONTERO Mammography ACCESSION EXAM DATE/TIME PROCEDURE ORDERING PROVIDER [phone] 11/19/2020 09:59 EDT MG Breast Tomosynthesis ARIEL BUSCH SILVIO BI Scr CPT code [id number] Reason For Exam (MG Breast Tomosynthesis BI Scr) screening Report TIME SINCE LAST MAMMOGRAM: Last mammogram was performed 1 year and 3 months ago. REASON FOR EXAM: screening, asymptomatic. PROCEDURE: MG BREAST TOMOSYNTHESIS BL SCR: NOVEMBER 19, 2020 - 2D/3D Procedure 3D Bilateral CC and MLO view(s) were taken. 2D Bilateral CC and MLO view(s) were taken. Prior study comparison: August 09, 2019, bilateral MG breast tomosynthesis bl scr performed at [facility]. March 23, 2018, bilateral MG breast tomosynthesis bl scr performed at [facility]. September 30, 2016, bilateral MG mammogram digital screening performed at [facility]. TISSUE DENSITY: BIRADS B - There are scattered fibroglandular densities. . FINDINGS: No suspicious masses, architectural distortions or suspiciously clustered microcalcifications are identified. There are no significant changes when compared with prior studies. IMPRESSION: No mammographic evidence of malignancy. Markings on images: BB's = Nipples; skin lesions Open tonkawa = Palpable Line = Scar 2D digital mammography and tomosynthesis imaging were performed and reviewed with CAD. ASSESSMENT: Category 1 Negative RECOMMENDATION: Routine screening mammogram of both breasts in 1 year. . Report Dictated on Mammography Report Cancer Risk Assessment: This risk assessment is based on patient provided information collected in a risk survey taken at the time of this examination. Lifetime breast cancer risk: 17.74% - If greater than or equal to 20%, consider annual mammogram and annual screening Breast MRI or follow up in high risk clinic. Is the patient at elevated risk based on the HBOC criteria? No (Hereditary Breast and Ovarian Cancer) - If yes, consider genetic counseling and testing with high risk follow up. HNPCC mutation risk (Lopez Syndrome): 1% - if greater than or equal to 5%, consider genetic counseling, testing and screening colonoscopy. Final Signed Date and Time: 11/19/2020 11:33 am Signed by: MD FENG KERISTEN L [facility] OT Bone Density DEXA Axial S abdullahi 11-19-2020 OT Bone Density DEXA Axial Skeleton Patient Name: LUCY MONTERO Bone Density ACCESSION EXAM DATE/TIME PROCEDURE ORDERING PROVIDER [id number] 11/19/2020 10:13 EDT OT Bone Density DEXA ARIEL JO-ANNSILVIO Ritchie Axial Skeleton CPT code 83120 Reason For Exam (OT Bone Density DEXA Axial Skeleton) screening for osteoporosis, menopause Report DXA BONE DENSITOMETRY: CLINICAL INDICATION: Asymptomatic post-menopausal status. Screening for osteoporosis. COMPARISON: None TECHNIQUE: Quantitative bone mineral densitometry of the hip and lumbar spine was performed with a dual energy x-ray observed absorptiometry device - [employer]. Regions of interest were obtained through the proximal femur and compared to the normal value of young adult women. Regions of interest were also obtained through the lumbar vertebrae with an average value determined and compared to the normal value of young adult woman. The difference between your measured bone density and the bone density of a normal young woman is expressed in standard deviations as the T score. Similarly, your measured bone density is also compared to age and race matched values, and expressed in standard deviations as the Z score. According to World Health Organization criteria: T-score of -1.0 or higher is normal. T-score between -1.1 to < -2.5 is low bone density or osteopenia. T-score of -2.5 or lower is abnormally low, compatible with osteoporosis. T-score of -2.5 or less plus fragility fracture indicates severe osteoporosis. FINDINGS: Femoral neck left Density: 0.873 g/cm2. T-score: 0.2 Z-score: 1.2 Total Hip left Density: 1.038 g/cm2. T-score: 0.8 Z-score: 1.4 Comparison from prior examination: N/A Spine: L1-L4 Density 1.106 g/cm2. T-score: 0.5 Z-score: 1.5 Comparison from prior examination: N/A Bone Density Report /3 Radius: Not measured IMPRESSION: Normal bone density. FRACTURE RISK: The estimated 10 year risk for a hip fracture is 0.1 % and for a major osteoporosis-related fracture is 5.2 %. (FRAX version 3.08). RECOMMENDATIONS (from the National Osteoporosis Foundation *) : General recommendations for prevention of bone loss include: 6969-3887 mg calcium intake per day for adults >50yrs, and no history of renal calculi 800-1000 IU of vitamin D3 per day for adults >50yrs, and no history of renal calculi Weight bearing exercise Discontinue smoking Avoid excessive use of caffeine, soft drinks, and alcoholic beverages. In addition, balance training and fall prevention programs can help reduce the risk of fractures. Pharmacologic treatment recommendations: Initiate pharmacologic treatment in patients with hip or vertebral fracture. In those with T scores by DXA In postmenopausal women and men age 50 or older with low bone mass (T score between -1.0 and -2.5 [osteopenia]) at the femoral neck, total hip, or lumbar spine by DXA and a 10 year hip fracture probability >/= 3% or a 10 year major osteoporosis-related fracture probability >/= 20% based on the [place]-adapted WHO fracture risk model (FRAX). Current FDA-approved pharmacologic options for osteoporosis treatment include bisphosphonates (Fosamax), ibandronate (Boniva), risedronate (Actonel), zoledronic acid (Reclast), estrogens and other hormonal therapies (Evista), parathyroid hormone (Forteo), and denosumab (Prolia). Initiation of pharmacologic therapy should happen only after thorough medical evaluation, discussion of risks and benefits, and with regular monitoring of the therapeutic regimen. Follow-up recommendations: Patients with osteoporosis or or at high risk for fracture should have follow-up bone density tests. For Medicare patients, routine testing is allowed every 2 years. Patients who have low bone mass (T score -2.0 to -2.49), who are currently on treatment for low bone mass, or having risk factors for accelerated bone loss (glucocorticoids, aromatase inhibitors, etc.), consider repeat DXA in 1-2 years. Patients with osteopenia and no risk factors may consider follow-up every 3-5 years. References: * National Osteoporosis Foundation. Clinician's Guide to Prevention and Treatment of Osteoporosis. Osteoporosis International. Whyte, 2014. DXA Scan Screening, Reporting (FRAX Score) and Follow-up. Sheila of Knowledge Evidence - based Summaries. Health [employer] for Education and Research. 2017 Bone Density Report Report Dictated on Workstation: [id number] Final Dictating Physician: MD GUPTA DIANE Signed Date and Time: 11/20/2020 2:17 pm Signed by: MD GUPTA DIANE Transcribed Date and Time: 11/20/2020 2:18 Normal [facility] Vital Signs Date Time Vital Sign Value Performing Clinician Drake connors 01-20-2025 09:46-0400 Body height 170.2 cm Silvio Tuttle MD Work Phone: [facility] 01-20-2025 09:46-0400 Body mass index (BMI) [Ratio] 25.06 kg/m2 Silvio Tuttle MD Work Phone: [facility] 01-20-2025 09:46-0400 Body weight 72.58 kg Silvio Tuttle MD Work Phone: [facility] 01-20-2025 09:46-0400 Diastolic blood pressure 74 mm[Hg] Silvio Tuttle MD Work Phone: [facility] 01-20-2025 09:46-0400 Systolic blood pressure 128 mm[Hg] Silvio Tuttle MD Work Phone: [facility] 12-09-2024 17:42-0400 Body height 172.72 cm Albertina Mcdaniel NP-C Work Phone: [facility] 12-09-2024 17:42-0400 Body mass index (BMI) [Ratio] 26.4 kg/m2 Albertina Mcdaniel NP-C Work Phone: [facility] 12-09-2024 17:42-0400 Body temperature 97.7 [degF] Albertina Mcdaniel NP-C Work Phone: [facility] 12-09-2024 17:42-0400 Body weight 78.92 kg Albertinaveronica Mcdaniel STAMPING MACHINE OPERATOR-C Work Phone: [facility] 12-09-2024 17:42-0400 Diastolic blood pressure 80 mm[Hg] Albertina Mcdaniel STAMPING MACHINE OPERATOR-C Work Phone: [facility] 12-09-2024 17:42-0400 Heart rate 91 /min Albertinaveronica Mcdaniel STAMPING MACHINE OPERATOR-C Work Phone: [facility] 12-09-2024 17:42-0400 Respiratory rate 18 /min Albertinaveronica Mcdaniel STAMPING MACHINE OPERATOR-C Work Phone: [facility] 12-09-2024 17:42-0400 SaO2% (BldA) [Mass fraction] 100 % Albertina Mcdaniel STAMPING MACHINE OPERATOR-C Work Phone: [facility] 12-09-2024 17:42-0400 Systolic blood pressure 130 mm[Hg] Albertina Mcdaniel STAMPING MACHINE OPERATOR-C Work Phone: [facility] 12-05-2024 11:29-0400 Body mass index (BMI) [Ratio] 26.4 kg/m2 Albertina Mcdaniel STAMPING MACHINE OPERATOR-C Work Phone: [facility] 12-05-2024 11:29-0400 Body temperature 97.9 [degF] Albertina Mcdaniel STAMPING MACHINE OPERATOR-C Work Phone: [facility] 12-05-2024 11:29-0400 Body weight 78.92 kg Albertina Mcdaniel STAMPING MACHINE OPERATOR-C Work Phone: [facility] 12-05-2024 11:29-0400 Diastolic blood pressure 70 mm[Hg] Albertina Mcdaniel STAMPING MACHINE OPERATOR-C Work Phone: [facility] 12-05-2024 11:29-0400 Heart rate 80 /min Albertinaveronica Mcdaniel STAMPING MACHINE OPERATOR-C Work Phone: [facility] 12-05-2024 11:29-0400 Respiratory rate 18 /min Albertinaveronica Mcdaniel STAMPING MACHINE OPERATOR-C Work Phone: [facility] 12-05-2024 11:29-0400 SaO2% (BldA) [Mass fraction] 98 % Albertina Mcdaniel STAMPING MACHINE OPERATOR-C Work Phone: [facility] 12-05-2024 11:29-0400 Systolic blood pressure 120 mm[Hg] Albertina Jonas STAMPING MACHINE OPERATOR-C Work Phone: [facility] 09-26-2023 17:02-0400 Body height 172.72 cm [facility] 09-26-2023 17:02-0400 Body mass index (BMI) [Ratio] 24.3 kg/m2 [facility] 09-26-2023 17:02-0400 Body temperature 97.3 [degF] [facility] 09-26-2023 17:02-0400 Body weight 72.57 kg [facility] 09-26-2023 17:02-0400 Diastolic blood pressure 70 mm[Hg] [facility] 09-26-2023 17:02-0400 Heart rate 86 /min [facility] 09-26-2023 17:02-0400 Respiratory rate 18 /min [facility] 09-26-2023 17:02-0400 SaO2% (BldA) [Mass fraction] 89 % [facility] 09-26-2023 17:02-0400 Systolic blood pressure 122 mm[Hg] [facility] 04-14-2023 13:12-0400 Body height 170.2 cm Silvio Tuttle MD Work Phone: [facility] 04-14-2023 13:12-0400 Body mass index (BMI) [Ratio] 23.49 kg/m2 Silvio Tuttle MD Work Phone: [facility] 04-14-2023 13:12-0400 Body weight 68.04 kg Silvio Tuttle MD Work Phone: [facility] 02-17-2023 10:31-0400 Body height 170.2 cm Silvio Tuttle MD Work Phone: [facility] 02-17-2023 10:31-0400 Body weight 74.84 kg Silvio Tuttle MD Work Phone: [facility] 02-17-2023 10:31-0400 Diastolic blood pressure 78 mm[Hg] Silvio Tuttle MD Work Phone: [facility] 02-17-2023 10:31-0400 Systolic blood pressure 122 mm[Hg] Silvio Tuttle MD Work Phone: [facility] Encounters Encounter Date Encounter Type Care Provider Facility Start: 01-21-2025 End: 01-21-2025 ambulatory AVERELL EDWARDO AVERELL DO~[id number] [facility] Start: 01-20-2025 End: 01-20-2025 Follow-up encounter [facility] Comment on above: Results Start: 01-20-2025 End: 01-20-2025 Patient encounter procedure [facility]vio Tuttle MD [facility] [employer] [facility] Comment on above: HSV-2 infection (Mile tiffany Dx) Start: 01-17-2025 End: 01-20-2025 Follow-up encounter Silvio Tuttle MD [facility] [employer] [facility] Comment on above: Results Start: 01-10-2025 End: 01-10-2025 ambulatory AVERELL EDWARDO AVERELL DO~[id number] [facility] Start: 01-07-2025 End: 01-07-2025 ambulatory AVERELL EDWARDO AVERELL DO~[id number] [facility] Start: 12-31-2024 ambulatory ASHLI Monique ility:[facility] Start: 12-31-2024 End: 12-31-2024 Subsequent hospital visit by physician [employer] [facility] (I-Stat/1.5t) Work Phone: Radiology Start: 12-09-2024 End: 12-09-2024 ambulatory Albertina Mcdaniel NP-C Work Phone: [facility] Start: 12-05-2024 End: 12-05-2024 ambulatory Albertina Mcdaniel STAMPING MACHINE OPERATOR-C Work Phone: [facility] Work Phone: Start: 09-26-2023 End: 09-26-2023 Patient encounter procedure [facility] Work Phone: Start: 09-26-2023 End: 09-26-2023 ambulatory Albertina Mcdaniel STAMPING MACHINE OPERATOR [facility] Work Phone: Start: 05-12-2023 Telephone encounter Silvio Tuttle MD Work Phone: [employer] [facility] Comment on above: Results Start: 04-24-2023 Refill Silvio sorto MD Work Phone: [facility] Start: 04-14-2023 End: 04-15-2023 Encounter for gynecological examination (general) (routine) without abnormal findings SILVIO TUTTLE [facility] Start: 04-14-2023 End: 04-15-2023 ambulatory SILVIO TUTTLE [facility] Comment on above: results Start: 04-14-2023 E-mail encounter fro m caregiver Silvio Tuttle MD Work Phone: [employer] [facility] Start: 04-14-2023 End: 04-14-2023 Patient encounter status Silvio Tuttle MD Work Phone: [facility] Start: 04-14-2023 End: 04-14-2023 Subsequent hospital visit by physician Silvio Tuttle MD Work Phone: [facility] Comment on above: Encounter for screen ing mammogram for malignant neoplasm of breast; Encounter for gynecological examination (general) (routine) without abnormal findings Start: 03-16-2023 End: 03-17-2023 ambulatory MARISELA HOOKER [facility] Start: 03-16-2023 End: 03-16-2023 Subsequent hospital visit by physician Silvio Tuttle MD Work Phone: [facility] Radiology Comment on above: Encounter for screen ing for osteoporosis; Asymptomatic menopausal state Start: 03-15-2023 Telephone encounter Silvio Tuttle MD Work Phone: [facility] Comment on above: Results Start: 03-06-2023 Patient encounter status Silvio Tuttle MD Work Phone: [facility] Start: 03-06-2023 Transcribe Orders Silvio Tuttle MD Work Phone: [facility] Comment on above: Asymptomatic menopau jamshid state (Primary Dx); Encounter for screening for osteoporosis; Encounter for screening mammogram for malignant neoplasm of breast; Encounter for gynecological examination (general) (routine) without abnormal findings Start: 02-17-2023 End: 02-17-2023 Female genitalia finding Silvio Tuttle MD Work Phone: [facility] Work Phone: Start: 02-17-2023 End: 02-17-2023 Patient encounter procedure Silvio Tuttle MD Work Phone: [facility] Comment on above: Gynecologic exam nor mal (Primary Dx); Cervical cancer screening; Breast cancer screening by mammogram; Screening for osteoporosis; Menopause; Screening for colon cancer; Hormone imbalance Start: 12-31-2021 Refill Saniya Jones PA-C Work Phone: [facility] Start: 11-19-2020 End: 11-19-2020 Subsequent hospital visit by physician Silvio Tuttle MD Work Phone: [facility] Comment on above: Arrived Start: 08-09-2019 End: 08-09-2019 Subsequent hospital visit by physician Silvio Tuttle Work Phone: [facility] Comment on above: Arrived Procedures Date Procedure Procedure Detail Performing Clinician Start: 01-15-2025 Adult depression scr eening assessment Silvio Tuttle MD Work Phone: Start: 04-14-2023 End: 04-14-2023 Screening digital breast tomosynthesis bi Silvio Tuttle MD Work Phone: Start: 03-16-2023 Dxa bone density pepper dy 1/> sites axial skel Silvio Tuttle MD Work Phone: Start: 02-18-2022 Lipid 1996 panel - S pratibha or Plasma Silvio Tuttle MD Work Phone: Start: 11-19-2020 Mammography Saniya huff PA-C Work Phone: Start: 11-18-2020 Adult depression scr eening assessment Saniya Jones PA-C Work Phone: Plan of Treatment Date Care Activity Detail Author Start: 01-15-2030 Screening for malign ant neoplasm of cervix Cervical Cancer Screening [facility] Start: 02-18-2028 HPV Testing HPV Testing [facility] Start: 02-18-2028 Pap Testing Pap Testing [facility] Start: 02-18-2028 Screening for malign ant neoplasm of cervix Cervical Cancer Screening [facility] Start: 2027 RSV Immunization age d 60 or older (1 - 1-dose 60+ series) RSV Immunization aged 60 or older (1 - 1-dose 60+ series) [facility] Start: 02-18-2027 Lipid 1996 panel - Serum or Plasma Lipid Screening [facility] Start: 02-18-2027 Lipid panel Lipid Screening [facility] Start: 01-29-2026 Screening for malign ant neoplasm of colon Colorectal Cancer Screening [facility] Comment on above: Postponed from 08/24 (Declined at this time) Start: 01-15-2026 Depression Screening Depression Scre ening [facility] Start: 01-03-2026 Screening for malign ant neoplasm of breast Mammogram Screening [facility] Start: 11-18-2025 PAP TESTING PAP TESTING [facility] Start: 02-18-2025 Diabetes Screening Diabetes Screenin g [facility] Start: 02-10-2025 Influenza vaccination Influenza Vacc ine (#1) [facility] Start: 01-15-2025 End: 01-15-2025 Patient encounter procedure 01/15/2025 8:45 AM EDT Office Visit [facility] [address] [address] Silvio Tuttle MD [address] [facility] [address] [place] [address] Annual [facility] Comment on above: Annual Start: 04-14-2024 Mammography Mammogram Screening [facility] Start: 04-14-2024 Screening for malign ant neoplasm of breast [facility] Start: 02-18-2024 COLORECTAL CANCER SCREENING COLORECTAL CANCER SCREENING [facility] Start: 02-18-2024 FECAL OCCULT BLOOD FECAL OCCULT BLOO D [facility] Start: 02-18-2024 Screening for malign ant neoplasm of colon [facility] Start: 04-14-2023 End: 04-14-2023 Patient encounter procedure 04/14/2023 1:00 PM EDT Appointment [facility] [address] [place] [address] Silvio Tuttle MD [address] [facility] [address] [place], [place] [id number] [facility] Start: 02-10-2023 Covid-19 Vaccine () Covid-19 Vaccine () [facility] Start: 02-10-2023 Influenza vaccination C [facility] Start: 02-10-2022 Influenza vaccination INFLUENZA (#1) [facility] Start: 11-19-2021 Mammography [facility] Start: 11-19-2021 Screening for malign ant neoplasm of breast Mammogram [facility] Start: 11-18-2021 Adult depression screening assessment DEPRESSION SCREENING [facility] Start: 11-18-2021 COLORECTAL CANCER SCREENING COLORECTAL CANCER SCREENING [facility] Start: 11-18-2021 FECAL OCCULT BLOOD FECAL OCCULT BLOO D [facility] Start: 08-09-2021 Screening for malign ant neoplasm of breast Breast cancer screen [facility] Work Phone: Start: 07-09-2021 COVID-19 VACCINE (3 - Booster for Mary series) COVID-19 VACCINE (3 - Booster for Mary series) [facility] Start: 10-23-2020 COVID-19 VACCINE (2 - Booster for Mary series) COVID-19 VACCINE (2 - Booster for Mary series) [facility] Start: 07-10-2020 HPV TESTING HPV TESTING [facility] Start: 03-23-2020 Breast cancer screen Breast cancer [facility], [place] Start: 02-10-2019 Influenza vaccination Flu vaccine (# 1) [place], [place] Start: 08-24-2017 Colon cancer screen colonoscopy Colon cancer screen colonoscopy [place], [place] Start: 08-24-2017 Pneumococcal Vaccine : 50+ (1 of 1 - PCV) Pneumococcal Vaccine: 50+ (1 of 1 - PCV) [facility] Start: 08-24-2017 Screening for malign ant neoplasm of colon Colon cancer screen colonoscopy [facility] Work Phone: Start: 08-24-2017 Shingles Vaccine (1 of 2) Shingles Vaccine (1 of 2) [place], [place] Start: 08-24-2017 SHINGRIX VACCINE (1 of 2) SHINGRIX VACCINE (1 of 2) [facility] Start: 08-24-2017 Zoster Vaccines (1 o f 2) Zoster Vaccines (1 of 2) [facility] Start: 08-24-2012 COLOGUARD (FIT-DNA) COLOGUARD (FIT-D NA) [facility] Start: 08-24-2012 Colonoscopy COLONOSCOPY [facility] Start: 08-24-[address] [facility] Start: 08-24-2012 DIABETES SCREEN DIABETES SCREEN [facility] Start: 08-24-2012 Diabetes Screening Diabetes Screenin g [facility] Start: 08-24-2012 Lipid 1996 panel - Serum or Plasma Lipid Screening [facility] Start: 08-24-2012 LIPID SCREEN LIPID SCREEN [facility] Start: 08-24-2012 Screening for malign ant neoplasm of colon [facility] Start: 08-24-2012 SIGMOIDOSCOPY SIGMOIDOSCOPY [facility] Start: 2007 Lipid panel Lipid screen [facility] Work Phone: Start: 2007 Lipid screen Lipid screen [place], [place] Start: 08-24-1997 Screening for malign ant neoplasm of cervix [facility] Start: 08-24-1988 Cervical cancer screen Cervical canc er screen [place], [place] Start: 08-24-1988 Screening for malign ant neoplasm of cervix [facility] Start: 08-24-1986 DTaP/Tdap/Td vaccine (1 - Tdap) DTaP/Tdap/Td vaccine (1 - Tdap) [facility] Work Phone: Start: 08-24-1986 DTaP/Tdap/Td Vaccine s (1 - Tdap) DTaP/Tdap/Td Vaccines (1 - Tdap) [facility] Start: 08-24-1986 Hepatitis B Vaccine (1 of 3 - 19+ 3-dose series) Hepatitis B Vaccine (1 of 3 - 19+ 3-dose series) [facility] Start: 08-24-1986 Urine microalbumin profile [facility] Start: 08-24-1985 Anxiety Screening Anxiety Screening [facility] Start: 08-24-1985 Depression Screening Depression Scre ening [facility] Start: 08-24-1985 Hepatitis C screening Hepatitis C Sc reening [facility] Start: 08-24-1985 HIV SCREENING HIV SCREENING [facility] Start: 08-24-1985 HIV screening HIV Screening [facility] Start: 08-24-1982 HIV screen HIV screen [place], [place] Start: 08-24-1982 HIV screening HIV screen [facility] Work Phone: Start: 1979 Depression Screening Depression Scre ing [facility] Start: 08-24-1978 DTaP/Tdap/Td vaccine (1 - Tdap) DTaP/Tdap/Td vaccine (1 - Tdap) [place], [place] Start: 08-24-1968 MMR Vaccines (1 of 1 - Standard series) MMR Vaccines (1 of 1 - Standard series) [facility] Start: 1967 HEPATITIS B (1 of 3 - 3-dose series) HEPATITIS B (1 of 3 - 3-dose series) [facility] Start: 1967 Hepatitis B Vaccine (1 of 3 - 3-dose series) Hepatitis B Vaccine (1 of 3 - 3-dose series) [facility] Start: 1967 Hepatitis B Vaccines (1 of 3 - 3-dose series) Hepatitis B Vaccines (1 of 3 - 3-dose series) [facility] Start: 1967 Hepatitis C screening Hepatitis C sc reen [facility] Work Phone: Start: 1967 HIV screening HIV Screening [facility] Start: 1967 Screening for malign ant neoplasm of colon [facility] End: 11-19-2020 DEXA BONE DENSITY AXIAL SKELETON DEXA BONE DENSITY AXIAL SKELETON Imaging Routine Once for 1 Occurrences starting 11/19/2020 until 11/19/2020 [employer] Work Phone: Comment on above: Once for 1 Occurrenc es starting 11/19/2020 until 11/19/2020 DEXA BONE DENSITY AX IAL SKELETON DEXA BONE DENSITY AXIAL SKELETON Imaging Routine 11/19/2020 9:55 AM EDT [employer] Work Phone: DXA-AXIAL SKELETON DXA-AXIAL SKE LETON Radiology Routine Screening for osteoporosis Menopause 1 Occurrences starting 02/17/2023 [employer] Phone: Comment on above: 1 Occurrences starti ng 02/17/2023 FABIO SCREENING W MIGUELITO FABIO SCREENI NG W MIGUELITO Radiology Routine Gynecologic exam normal Breast cancer screening by mammogram 1 Occurrences starting 02/17/2023 [employer] Phone: Comment on above: 1 Occurrences starti ng 02/17/2023 OUTSIDE PROCEDURE SCAN OUTSIDE P ROCEDURE SCAN Procedures Ordered: 03/15/2023 [employer] Comment on above: Ordered: 03/15/2023 OUTSIDE PROCEDURE SCAN OUTSIDE P ROCEDURE SCAN Procedures Ordered: 04/14/2023 [employer] Comment on above: Ordered: 04/14/2023 PAP/HPV MRNA E6/E7 R FX HPV 16,18/45 PAP/HPV MRNA E6/E7 RFX HPV 16,18/45 Lab Routine Gynecologic exam normal Cervical cancer screening Ordered: 02/17/2023 [employer] Phone: Comment on above: Ordered: 02/17/2023 End: 08-09-2019 Screening digital breast tomosynthesis bi Fabio Miguelito Digital Screen Bilateral Imaging Routine Once for 1 Occurrences starting 08/09/2019 until 08/09/2019 [place] Comment on above: Once for 1 Occurrenc es starting 08/09/2019 until 08/09/2019 [facility] [place] End: 11-19-2020 Screening digital breast tomosynthesis bi Fabio Miguelito Digital Screen Bilateral Imaging Routine Once for 1 Occurrences starting 11/19/2020 until 11/19/2020 [employer] Work Phone: Comment on above: Once for 1 Occurrenc es starting 11/19/2020 until 11/19/2020 [facility] Immunizations Immunization Date Immunization Notes Care Provider Viral de la cruz 08-28-2020 COVID-19 vaccine (MARY) Saniya BOOTH-C Work Phone: [facility] 03-27-2020 Influenza, injectabl e, [place] Canine Kidney, preservative free, quadrivalent Saniya Jones PA-C Work Phone: [facility] 03-27-2020 influenza, injectabl e, quadrivalent, contains preservative Saniya Jones PA-C Work Phone: [facility] 03-27-2020 influenza virus vacc ine, unspecified formulation Silvio Tuttle MD Work Phone: [facility] 04-13-2019 influenza, injectabl e, quadrivalent, preservative free Saniya Jones PA-C Work Phone: [facility] 08-10-2012 influenza, seasonal, injectable Saniya Jones PA-C Work Phone: [facility] 04-01-2011 influenza, high dose seasonal, preservative-free Saniya Jones PA-C Work Phone: [facility] 04-01-2011 influenza, seasonal, injectable, preservative free Saniya Jones PA-C Work Phone: [facility] Payers Date Payer Category Payer [facility] LOLI YIP O OJ [id number] 2023 Self-pay 2023 Unknown [employer] [id number] 2023-Present [address] [place] [address] Commercial [id number] 2017 Unknown [employer] [id number] 2017-Present [address] [address] [place] [address] xxxxxxxxxx [id number] 2017 Unknown [employer] [id number] 2017-Present [address] [address] [place] [address] [id number] 1965 Unknown [id number] 1965 Unknown [id number] 1965 Unknown [id number] 1959 Unknown [id number] Unknown [id number] Social History Date Type Detail Facility Start: 06-28-2017 End: 02-17-2023 Tobacco smoking status NHIS Never smoker [facility] Start: 06-28-2017 End: 01-20-2025 Alcohol intake Current drinker of alcohol (finding) [place], [place] Start: 1965 Sex Assigned At Not on file M [place], [place] Start: 06-28-2017 End: 02-17-2023 Tobacco use and exposure Never used [facility] Start: 06-28-2017 End: 01-15-2025 Alcohol intake [facility] Start: 09-14-2017 History SDOH Alcohol Comment occ [facility] Start: 02-17-2023 End: 01-15-2025 Tobacco use panel [facility] Start: 05-13-2012 Adult Depression Screening Assessment 0 [facility] Start: 1965 Sex Assigned At Female C [facility] Start: 02-20-2023 Gender identity Identifies as female gender (finding) [facility] Start: 02-20-2023 Sexual orientation Choose not to dis close [facility] Tobacco smoking stat us NHIS Unknown if ever smoked [facility] Work Phone: How often to you hav e a drink containing alcohol? 2-4 times a month [facility] How many standard dr inks containing alcohol do you have on a typical day? 3 or 4 [facility] How often do you hav e 6 or more drinks on 1 occasion? Monthly [facility] Functional Status Date Assessment Result Facility 01-20-2025 Total score [AUDIT-C] 5 01/21/20 25 9:52 AM EDT Migdalia Palacios MA [facility] Clinical Notes 12-31-2021 to 01-20-2025 Telephone Encounter - Migdalia Palacios MA - 01/20/2025 11:27 AM EDTTelephone Encounter - Migdalia Palacios MA - 01/20/2025 11:27 AM EDTTelephone Encounter - Migdalia Palacios MA - 01/20/2025 11:26 AM EDT Note Date & Type Note Facility 01-20-2025 Telephone encount er Note Pt is informed with her results. Migdalia Palacios MA [facility] 01-20-2025 Miscellaneous Notes Formattin g of this note might be different from the original. Pt is informed with her results. Migdalia Palacios MA ----- Message from Silvio Tuttle MD sent at 01/20/2025 8:56 AM EDT ----- Please call patient. Your HSV PCR culture does show Herpes 2. Your blood test also confirmed this. You can start valtrex daily, if you want. If you want to come in for a visit to discuss this, you can, as well. Silvio Tuttle MD ----- Message ----- From: Adriana Marks In ([employer]) Sent: 01/17/2025 4:57 PM EDT To: Silvio Tuttle MD documented in this encounter [facility] 01-20-2025 Telephone encount er Note Pt is informed with her results. Migdalia Palacios MA [facility] 01-20-2025 Telephone encount er Note Please call patient. Your HSV PCR culture does show Herpes 2. Your blood test also confirmed this. You can start valtrex daily, if you want. If you want to come in for a visit to discuss this, you can, as well. Silvio Tuttle MD ----- Message ----- From: Adriana Marks In ([employer]) Sent: 01/17/2025 4:57 PM EDT To: Silvio Tuttle MD [facility] 01-20-2025 Telephone encount er Note ----- Message from Silvio Tuttle MD sent at 01/20/2025 8:56 AM EDT ----- Please call patient. Your HSV PCR culture does show Herpes 2. Your blood test also confirmed this. You can start valtrex daily, if you want. If you want to come in for a visit to discuss this, you can, as well. Silvio Tuttle MD ----- Message ----- From: Adriana Marks In ([employer]) Sent: 01/17/2025 4:57 PM EDT To: Silvio Tuttle MD [facility] 01-20-2025 Miscellaneous Notes Formattin g of this note might be different from the original. Pt is informed with her results. Migdalia Palacios MA Please call patient. Your HSV PCR culture does show Herpes 2. Your blood test also confirmed this. You can start valtrex daily, if you want. If you want to come in for a visit to discuss this, you can, as well. Silvio Tuttle MD ----- Message ----- From: Adriana Marks In ([employer]) Sent: 01/17/2025 4:57 PM EDT To: Silvio Tuttle MD ----- Message from Silvio Tuttle MD sent at 01/17/2025 3:08 PM EDT ----- Please call patient. Your herpes 2 is positive. Herpes 1 is negative. There is medication to suppress or treat HSV 2. It is taken daily to prevent or suppress outbreaks. It is taken twice daily x 3d to treat an outbreak. A prescription will be sent to your pharmacy. Your culture is still pending. If you want to discuss this in person, that is also an option. Silvio Tuttle MD documented in this encounter [facility] 01-20-2025 Telephone encount er Note ----- Message from Silvio Tuttle MD sent at 01/17/2025 3:08 PM EDT ----- Please call patient. Your herpes 2 is positive. Herpes 1 is negative. There is medication to suppress or treat HSV 2. It is taken daily to prevent or suppress outbreaks. It is taken twice daily x 3d to treat an outbreak. A prescription will be sent to your pharmacy. Your culture is still pending. If you want to discuss this in person, that is also an option. Silvio Tuttle MD [facility] 01-20-2025 History of Presen t illness Narrative SUBJECTIVE: Lucy Montero is a 59 year old female who is here today for a follow up visit to discuss medications. HSV 2 IgG and PCR HSV2 +. Discussed Valtrex. Shingrix also discussed. FAMILY HISTORY[1] PAST MEDICAL HISTORY[2] PAST SURGICAL HISTORY Procedure Laterality Date D+C 2008 Ablation PAST SURGICAL HISTORY OF 1988 cryo of polyps PAST SURGICAL HISTORY OF 2006 H/S with essure SOCIAL HISTORY[3] CURRENT MEDICATIONS[4] ALLERGIES[5] OBJECTIVE BP 128/74 Ht 5' 7 (1.70m) Wt 160 lb (72.6kg) LMP 12/13/2017 BMI 25.05 kg/(m^2). ASSESSMENT/PLAN: 1. 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 [1] Review of patient's family history indicates: Problem: Breast Cancer Relation: Mother Age of Onset: 83 Problem: other (kidney cancer) Relation: Mother Age of Onset: 85 Problem: other (Colon Polyps) Relation: Father Age of Onset: (Not Specified) Problem: Breast Cancer Relation: Sister Age of Onset: 69 Comment: HR+,HR2 negative Problem: Prostate Cancer Relation: Paternal Uncle Age of Onset: 75 [2] Past Medical History: No date: Dysmenorrhea No date: Fibrocystic breast disease 01/2025: HSV-2 seropositive No date: Menorrhagia No date: Migraine No date: Uterine fibroid [3] Social History Tobacco Use Smoking status: Never Smokeless tobacco: Never Vaping Use Vaping status: Never Used Substance Use Topics Alcohol use: Yes Comment: occ Drug use: Never [4] Current Outpatient Medications Medication Sig predniSONE (DELTASONE) 20 mg tablet valACYclovir (VALTREX) 500 mg tablet Take 1 tablet daily for suppression or 1 tablet twice daily x 3d at first symptom of outbreak estradiol (ESTRACE) 0.01 % (0.1 mg/gram) vaginal cream Use 1 g vaginally two times a week. No current facility-administered medications for this visit. [5] Allergies Allergen Reactions Benadryl [Diphenhyd* Other: See Comments Heart flooders documented in this encounter [facility] 12-31-2024 History of Presen t illness Narrative Radiology Service Progress Note DATE OF SERVICE: December 31, 2024 TIME: 2:46 PM PATIENT IDENTITY VERIFICATION COMPLETED USING TWO (2) STANDARD IDENTIFIERS: Name and Date of confirmed by patient verbally. FALL SCREENING: Has the patient had 2 falls in the last year or 1 fall with injury or currently using an Ambulatory Assistive Device (Walker, Cane, Wheelchair, Crutches, etc.)? No PATIENT GENDER DATA: Assigned female at . status: : No status: NO. PATIENT RELEVANT IMPLANT DATA REVIEWED: Yes PATIENT PRESENTS WITH AN IMPLANTABLE OR ATTACHED LOFT PATTERNMAKER: No ALLERGIES: Reviewed and unchanged CONTRAST ALLERGY: NO. EXAM: MRI - CONTRAST TYPE: GROUP II PERIPHERAL IV DATA: Ambulatory: A peripheral IV was started in the Left upper extremity with a Angio cath: 22 gauge. RADIOLOGY DEPARTMENT: MR; Exam(s) Completed: Head: IAC/CPA. Aromatherapy Administered: No SIGNATURE: JULIANNA Mahmood) PATIENT NAME: Lucy Montero DATE: December 31, 2024 TIME: 2:46 PM documented in this encounter [facility] 12-31-2024 Note HNO ID: [id number] Author: MARISELA RYAN RT(R) Service: ? Author Type: Technologist Type: Progress Notes Filed: 12/31/2024 14:47 Note Text: Radiology Service Progress Note DATE OF SERVICE: December 31, 2024 TIME: 2:46 PM PATIENT IDENTITY VERIFICATION COMPLETED USING TWO (2) STANDARD IDENTIFIERS: Name and Date of confirmed by patient verbally. FALL SCREENING: Has the patient had 2 falls in the last year or 1 fall with injury or currently using an Ambulatory Assistive Device (Walker, Cane, Wheelchair, Crutches, etc.)? No PATIENT GENDER DATA: Assigned female at . status: : No status: NO. PATIENT RELEVANT IMPLANT DATA REVIEWED: Yes PATIENT PRESENTS WITH AN IMPLANTABLE OR ATTACHED LOFT PATTERNMAKER: No ALLERGIES: Reviewed and unchanged CONTRAST ALLERGY: NO. EXAM: MRI - CONTRAST TYPE: GROUP II PERIPHERAL IV DATA: Ambulatory: A peripheral IV was started in the Left upper extremity with a Angio cath: 22 gauge. RADIOLOGY DEPARTMENT: MR; Exam(s) Completed: Head: IAC/CPA. Aromatherapy Administered: No SIGNATURE: RT Timoteo(R) PATIENT NAME: Lucy Montero DATE: December 31, 2024 TIME: 2:46 PM [facility] 12-09-2024 Progress note Note Date/Time December 09, 2024 8:22pm After Hours [facility] [place] [address] [place] [address] OFFICE VISIT Date of Service: 12/09/24 MR#: [id number] Acct: [id number] Name: LUCY MONTERO Rep #: [id number] : 1965 Provider: PETRA Mcdaniel Age/Sex: 59/F Location: [facility] Status: Signed Intake Vital Signs 12/05/24 11:29 12/09/24 17:42 Height 5 ft 8 in 5 ft 8 in Weight: 174 lb BMI 26.4 BP 130/80 H Blood Pressure Location Rt brachial Position Sitting Respiration 18 Temp 97.7 F L Temp Source Surface Pulse 91 Pulse Source Doppler Pulse Oximetry (%) 100 Oxygen Delivery Method room air Intake Visit Reasons: F/up W/ears Accompanied by: Self Is patient in pain?: Yes Allergies No Known Allergies Allergy (Verified 09/26/23 17:03) Medications ?Medication ?Instructions ?Recorded ?Confirmed ?Type azithromycin 250 mg tablet 250 mg PO QDAY 5 days #6 ta bs 12/09/24 12/09/24 Rx Is last menstrual period known: No Post menopausal: Yes Patient : No HPI HPI HPI HPI: LUCY MONTERO, is a 59 F who presents to the office today for tinnitus. She statesshe had the problem before but the ear wax muffled it somewhat .Now its so loud ,she has tried pseudofed ,flonase ,trying toe blow out her nose with holding it. But not helping . ROS Const Constitutional: No anorexia, body ache, chills, excessive sweating, fatigue, fever(s), frequent falls, headache(s), decreased energy, malaise, night sweats, snoring, weakness, weight change, sleep problems, abnormal sleep pattern, changein appetite or other Eyes Eyes: No blurry vision, change in vision, double vision, discharge, dry eyes, bulging eyes, floaters, visual disturbances, eye pain, Light sensitivity, spots in vision, tunnel vision or other ENT ENT: Positive for tinnitus; No abnormal hearing, ear or mastoid pain, ear discharge, ear pressure, hearing loss, dizziness/vertigo, balance problems, nosebleed/epistaxis, nasal congestion, nasal obstruction, nose pain, sinus pressure, sinus pain, nasal discharge, post nasal drip, headache(s), facial pain, dental pain, dry mouth, difficulty swallowing, bad breath, hoarseness, lip swelling, mouth lesions, mouth pain, neck pain, sore throat, tongue swelling, throat swelling or other Resp Respiratory: No cough, change in phlegm color, chest congestion, excessive phlegm production, hemoptysis, pain on inspiration, shortness of breath, pain with cough, snoring, stridor, wheezing or other Cardio Cardiology: No chest pain at rest, chest pain with exertion, leg pain with exertion, excessive sweating, shortness of breath, dyspnea on exertion, generalized swelling, irregular heart rhythm, lightheadedness, orthopnea, radiating jaw, neck or arm pain, fast heart rate, slow heart rate, palpitations or other Gastro GI: No abdominal pain, No belching, No bloating, No change in bowel habits, No change in stool character, No coffee ground emesis, No constipation, No cramping, No diarrhea, No heartburn, No Difficulty Swallowing, No feeling full early, No excessive flatus, No incontinent of stools, No Vomiting blood/hematemesis, No Blood in stool, No loose stools, No Black,tarry stools, Nonausea/dyspepsia, No pain with swallowing, No vomiting, No hemorrhoids, No rectal pain and No other Genitourinary: No difficulty urinating, burning urination, painful urination, urinary frequency, urinary urgency or blood in urine Musc Musculoskeletal: No abnormal gait, joint pain, back pain, deformity, joint swelling, limited range of motion, loss of height, muscle cramps, muscle weakness, decreased muscle mass, myalgias, neck pain, numbness, radiating pain into limb, stiffness, tingling, restless legs, leg pain with exertion or other Skin Skin: No acne, hair loss in leg, change in hair, nail changes, boil, change in skin color, dry skin, redness, excessive hair growth, yellowing of the eye, lesions, itchy eyes, rash, skin pain, skin ulcer, sores, skin swelling, wounds or other Breast Breast: No other Neuro Neurology: No abnormal gait, abnormal hearing, abnormal movements, abnormal speech, behavioral changes, confusion, unsteady gait/balance, dizziness, weakness, frequent falls, headache(s), lack of coordination, loss of vision, memory loss, numbness, tingling, visual disturbances, restless legs, fainting, tremor(s) or other Psych Psychiatric: No abnormal sleep pattern, No lack of enjoyment, No anxiety, No behavioral changes, No change in appetite, No confusion, No depression, No difficulty concentrating, No hopelessness, No irritability, No memory loss, No mood swings, No panic attacks, No paranoia, No Thoughts of harming yourself/Others, No hallucinations and No other Endo Endo: No excessive sweating, No fatigue and No other Aller/Imm Allergy/Immunologic: No itchy eyes, lip swelling, throat swelling, tongue swelling or wheezing Exam Const Constitutional: Yes cooperative and Yes healthy appearing Orientation: Yes alert, awake and oriented x3 [facility] Head: Yes normocephalic Ear: Yes hearing grossly normal bilaterally TM-Right: normal TM-Left: normal Pinna-Right: within normal limits Pinna-Left: within normal limits Face: Yes normal facial exam Nose: Yes external nose normal Mouth: Yes oral mucosae normal Neck Neck: normal visual inspection Eyes General: Yes appearance normal, both eyes and all related structures Resp Effort & Inspection: No stridor Auscultation: Yes clear to auscultation bilaterally Cardio Palpitation: Yes normal PMI Rate: Yes regular rate Rhythm: Yes regular rhythm GI Rectal Exam: No hemorrhoids Musc Cervical Spine: Yes cervical ROM normal Thoracic/Lumbar Spine: Yes thoracic and lumbar spine normal to inspection Skin General: no rashes or lesions noted Lesions: Yes no lesions Neuro General: Yes alert and oriented x3 Speech: Yes speech normal Gait: Yes normal gait Motor: No weakness Psych Appearance: Positive grossly normal Mood: Positive congruent mood Affect: Positive normal affect Speech and Movement: Yes speech and movement normal Attitude: Yes cooperative Thought Process: Yes normal Thought Content: Yes normal Judgment: Yes judgment good Coding Level of Care Code Off vis,est,level 3 Diagnoses Clicking tinnitus of both ears H93.13 Laterality: bilateral Tinnitus of right ear H93.11 Laterality: right Assessment and Plan Assessment and Plan (1) Clicking tinnitus: Status: Acute Qualifiers: Laterality: bilateral Qualified Code(s): H93.13 - Tinnitus, bilateral (2) Ringing in ears: Status: Acute Qualifiers: Laterality: right Qualified Code(s): H93.11 - Tinnitus, right ear Medications: New azithromycin 2 po qd for 1 day then 1 po qd for 4 days with food or after eating 250 mg POQDAY 6 tabs 0RF 5 days Patient Instructions: Take the antibiotic till gone Push the fluids follow up as needed ,May need to see ENT 12/09/242021 <Electronically signed by Albertina Grant on STAMPING MACHINE OPERATOR STAMPING MACHINE OPERATOR-C> Date _ Albertina Mcdaniel NP STAMPING MACHINE OPERATOR-C CC: ~ [facility] Work Phone: 1(441) 383-443906-30-2025 [facility] [address] [place] [address] OFFICE VISIT Date of Service: 12/09/24 MR#: [id number] Acct: [id number] Name: LUCY MONTERO Lauro Rep #: [id number] : 1965 Provider: PETRA Mcdaniel Age/Sex: 59/F Location: [facility] Status: Signed Intake Vital Signs 12/05/24 11:29 12/09/24 17:42 Height 5 ft 8 in 5 ft 8 in Weight: 174 lb BMI 26.4 BP 130/80 H Blood Pressure Location Rt brachial Position Sitting Respiration 18 Temp 97.7 F L Temp Source Surface Pulse 91 Pulse Source Doppler Pulse Oximetry (%) 100 Oxygen Delivery Method room air Intake Visit Reasons: F/up W/ears Accompanied by: Self Is patient in pain?: Yes Allergies No Known Allergies Allergy (Verified 09/26/23 17:03) Medications ?Medication ?Instructions ?Recorded ?Confirmed ?Type azithromycin 250 mg tablet 250 mg PO QDAY 5 days #6 ta bs 12/09/24 12/09/24 Rx Is last menstrual period known: No Post menopausal: Yes Patient : No HPI HPI HPI HPI: LUCY MONTERO, is a 59 F who presents to the office today for tinnitus. She statesshe had the problembefore but the ear wax muffled it somewhat .Now its so loud ,she has tried pseudofed ,flonase ,trying toe blow out her nose with holding it. But not helping . ROS Const Constitutional: No anorexia, body ache, chills, excessive sweating, fatigue, fever(s), frequent falls, headache(s), decreased energy, malaise, night sweats, snoring, weakness, weight change, sleep problems, abnormal sleep pattern, changein appetite or other Eyes Eyes: No blurry vision, change in vision, double vision, discharge, dry eyes, bulging eyes, floaters, visual disturbances, eye pain, Light sensitivity, spots in vision, tunnel vision or other ENT ENT: Positive for tinnitus; No abnormal hearing, ear or mastoid pain, ear discharge, ear pressure, hearing loss, dizziness/vertigo, balance problems, nosebleed/epistaxis, nasal congestion, nasal obstruction, nose pain, sinus pressure, sinus pain, nasal discharge, post nasal drip, headache(s), facial pain, dental pain, dry mouth, difficulty swallowing, bad breath, hoarseness, lip swelling, mouth lesions, mouth pain, neck pain, sore throat, tongue swelling, throat swelling or other Resp Respiratory: No cough, change in phlegm color, chest congestion, excessive phlegm production, hemoptysis, pain on inspiration, shortness of breath, pain with cough, snoring, stridor, wheezing or other Cardio Cardiology: No chest pain at rest, chest pain with exertion, leg pain with exertion, excessive sweating, shortness of breath, dyspnea on exertion, generalized swelling, irregular heart rhythm, lightheadedness, orthopnea, radiating jaw, neck or arm pain, fast heart rate, slow heart rate, palpitations or other Gastro GI: No abdominal pain, No belching, No bloating, No change in bowel habits, No change in stool character, No coffee ground emesis, No constipation, No cramping, No diarrhea, No heartburn, No Difficulty Swallowing, No feeling full early, No excessive flatus, No incontinent of stools, No Vomiting bloo d/hematemesis, No Blood in stool, No loose stools, No Black,tarry stools, Nonausea/dyspepsia, No pain with swallowing, No vomiting, No hemorrhoids, No rectal pain and No other Genitourinary: No difficulty urinating, burning urination, painful urination, urinary frequency, urinary urgency or blood in urine Musc Musculoskeletal: No abnormal gait, joint pain, back pain, deformity, joint swelling, limited range of motion, loss of height, muscle cramps, muscle weakness, decreased muscle mass, myalgias, neck pain, numbness, radiating pain into limb, stiffness, tingling, restless legs, leg pain with exertion orother Skin Skin: No acne, hair loss in leg, change in hair, nail changes, boil, change in skin color, dry skin, redness, excessive hair growth, yellowing of the eye, lesions, itchy eyes, rash, skin pain, skin ulcer, sores, skin swelling, wounds or other Breast Breast: No other Neuro Neurology: No abnormal gait, abnormal hearing, abnormal movements, abnormal speech, behavioral changes, confusion, unsteady gait/balance, dizziness, weakness, frequent falls, headache(s), lack of coordination, loss of vision, memory loss, numbness, tingling, visual disturbances, restless legs, fainting, tremor(s) or other Psych Psychiatric: No abnormal sleep pattern, No lack of enjoyment, No anxiety, No behavioral changes, Nochange in appetite, No confusion, No depression, No difficulty concentrating, No hopelessness, No irritability, No memory loss, No mood swings, No panic attacks, No paranoia, No Thoughts of harming yo urself/Others, No hallucinations and No other Endo Endo: No excessive sweating, No fatigue and No other Aller/Imm Allergy/Immunologic: No itchy eyes, lip swelling, throat swelling, tongue swelling or wheezing Exam Const Constitutional: Yes cooperative and Yes healthy appearing Orientation: Yes alert, awake and oriented x3 [facility] Head: Yes normocephalic Ear: Yes hearing grossly normal bilaterally TM-Right: normal TM-Left: normal Pinna-Right: within normal limits Pinna-Left: within normal limits Face: Yes normal facial exam Nose: Yes external nose normal Mouth: Yes oral mucosae normal Neck Neck: normal visual inspection Eyes General: Yes appearance normal, both eyes and all related structures Resp Effort & Inspection: No stridor Auscultation: Yes clear to auscultation bilaterally Cardio Palpitation: Yes normal PMI Rate: Yes regular rate Rhythm: Yes regular rhythm GI Rectal Exam: No hemorrhoids Musc Cervical Spine: Yes cervical ROM normal Thoracic/Lumbar Spine: Yes thoracic and lumbar spine normal to inspection Skin General: no rashes or lesions noted Lesions: Yes no lesions Neuro General: Yes alert and oriented x3 Speech: Yes speech normal Gait: Yes normal gait Motor: No weakness Psych Appearance: Positive grossly normal Mood: Positive congruent mood Affect: Positive normal affect Speech and Movement: Yes speech and movement normal Attitude: Yes cooperative Thought Process: Yes normal Thought Content: Yes normal Judgment: Yes judgment good Coding Level of Care Code Off vis,est,level 3 Diagnoses Clicking tinnitus of both ears H93.13 Laterality: bilateral Tinnitus of right ear H93.11 Laterality: right Assessment and Plan Assessment and Plan (1) Clicking tinnitus: Status: Acute Qualifiers: Laterality: bilateral Qualified Code(s): H93.13 - Tinnitus, bilateral (2) Ringing in ears: Status: Acute Qualifiers: Laterality: right Qualified Code(s): H93.11 - Tinnitus, right ear Medications: New azithromycin 2 po qd for 1 day then 1 po qd for 4 days with food or after eating 250 mg POQDAY 6 tabs 0RF 5 days Patient Instructions: Take the antibiotic till gone Push the fluids follow up as needed ,May need to see ENT 12/09/242021 on STAMPING MACHINE OPERATOR STAMPING MACHINE OPERATOR-C> Date _ Albertina Mcdaniel NP STAMPING MACHINE OPERATOR-C CC: ~ [facility]06-26-2025 Evaluation note* Diagnosis Onset Date Resolution Status Admit Date Clicking tinnitus acute December 052024 4:59pm Hearing loss due to cerumen impaction acute December 05, 2024 4:59pm Impacted cerumen of both ears acute December 05, 2024 4:59pm Clicking tinnitus acute December 092024 5:13pm Ringing in ears acute November 5:13pm [facility] Work Phone: [phone]) 918-510312-04-2023 Miscellaneous Notes* Telephone Encounter - Migdalia Palacios MA - 05/15/2023 9:44 AM EST Pt is informed with her results and states she has not received her copies yet but when she does she will bring and a copy and go from there. Migdalia Palacios MA * Telephone Encounter - Migdalia Palacios MA - 05/15/2023 9:27 AM EST Left message for pt to call the office. Migdalia Palacios MA * Telephone Encounter - Silvio Tuttle MD - 05/12/2023 2:33 PM EST Your saliva test from [facility] shows low estradiol (consistent with menopause). Progesterone is high(the number on the report is difficult to read; did you receive a better copy?). Testosterone, DHEAand cortisol are normal. Silvio Tuttle MD [facility]23 Miscellaneous Notes* Telephone Encounter - Silvio Tuttle MD - 04/25/2023 12:40 PM EST The following approved medication requests have been transmitted electronically. Requested Prescriptions Signed Prescriptions Disp Refills progesterone (CPD) 30 Each 3 Sig: Progesterone Triturate 150mg: Dissolve 1 under the tongue [facility] Silvio Tuttle MD documented in this encounterWay[facility]11-13-2023 Miscellaneous Notes* Telephone Encounter - Silvio Tuttle MD - 04/24/2023 5:29 PM EST The following approved medication requests have been transmitted electronically. Requested Prescriptions Signed Prescriptions Disp Refills progesterone (CPD) 60 Each 5 Sig: Progesterone Triturate 100mg: Dissolve 1 under the tongue [facility] Authorizing Provider: SILVIO TUTTLE MD [facility] documented in this encounterWay[facility]10-04-2023 Miscellaneous Notes* Telephone Encounter - Migdalia Palacios MA - 03/15/2023 4:25 PM EDT Pt called back and was informed with her results. Pt asked if it was ok to take 1 and a half of theprogesterone that she already has since she paid out of pocket for 2 months worth already. Pt also states she will message you on [facility]. Migdalia Palacios MA * Telephone Encounter - Migdalia Palacios MA - 03/15/2023 1:59 PM EDT Left message for pt to call the office. Migdalia Palacios MA * Telephone Encounter - Silvio Tuttle MD - 03/15/2023 1:21 PM EDT Your [facility] lab report shows normal estradiol, progesterone, but low progesterone/Estradiol ratio. Increasing your progesterone supplement can help this ratio. Do you want a new prescription for progesterone 150 mg written? Testosterone is normal. DHEA is low normal. Supplementing DHEA 5.0 mg sublingual otc is an option. Cortisol is low normal. You could consider a 4 point cortisol test to see your cortisol curve, if you want. Silvio Tuttle MD documented in this encounterWay[facility]09-08-2023 History of Present illness Narrative* Silvio Tuttle MD - 02/17/2023 10:30 AM EDT SUBJECTIVE Lucy Montero is a 57 year old woman who presents for her annual exam: Last pap 11/30, Mammo 11/30,Bone Density 11/30, Patient's last menstrual period was 12/13/2017.. Having problems with not sleeping. She went off progesterone and her hot flashes went away. She asked about testosterone. She has eliminated gluten sugar, alcohol. She has restless leg syndrome and her mom also had it. She asked about iron and dopamine. Reviewed labs; she is doing a heavy metal detox at this time. Her E2 went from 19 to 172. She has essure implants. Medications, Allergies, Surgeries, Family History updated and smoking status updated. Discussed health maintenance, including regular aerobic exercise, low fat diet, and periodic exams. HISTORIES FAMILY HISTORY Problem Relation Age of Onset Breast Cancer Mother 83 other (kidney cancer) Mother 85 other (Colon Polyps) Father Prostate Cancer Paternal Uncle 75 PAST MEDICAL HISTORY Diagnosis Date Dysmenorrhea Fibrocystic breast disease Menorrhagia Migraine Uterine fibroid PAST SURGICAL HISTORY Procedure Laterality Date D+C 2008 Ablation PAST SURGICAL HISTORY OF 1988 cryo of polyps PAST SURGICAL HISTORY OF 2006 H/S with essure There is no problem list on file for this patient. ALLERGIES No Known Allergies Current Outpatient Medications Medication Sig progesterone (CPD) Progesterone Triturate 100mg: Dissolve 1 under the tongue qhs No current facility-administered medications for this visit. REVIEW OF SYSTEMS GENERAL: No weight loss, malaise or fevers HEENT: No changes in hearing or vision NECK: Negative for lumps, goiter, pain and significant neck swelling RESPIRATORY: Negative for cough, wheezing, dyspnea or shortness of breath CARDIOVASCULAR: Negative for chest pain or palpitations GI: Negative for abdominal discomfort, blood in stools or black stools, change in bowel habit, diarrhea, nausea, vomiting, constipation : No history of dysuria, frequency or incontinence PHOTOGRAPHY INTERN: Negative for abnormal vaginal bleeding, abnormal vaginal discharge or Breast symptoms ENDOCRINE: Negative for cold or heat intolerance, polyuria, polydipsia and goiter NEURO: No history of headaches, syncope, paralysis, seizures or tremors OBJECTIVE BP 122/78 Ht 5' 7 (1.70m) Wt 165 lb (74.8kg) LMP 12/13/2017 BMI 25.84 kg/(m^2). HEENT: Within normal limits NECK: Supple, no thyromegaly BREASTS: No masses, no nipple discharge HEART: Regular rate and rhythm without murmur, rub, or gallop LUNGS: Clear bilaterally to auscultation ABDOMEN: No masses, non tender, no hernias, no hepatosplenomegaly PELVIC: EGBUS: No lesions, normal appearance VAGINA: No discharge, no blood, no lesions CERVIX: No lesions, non tender UTERUS: Anteverted, normal size, non tender ADNEXA: Non tender, no masses RECTOVAGINAL: Neg for heme or mass (FIT) EXTREMITIES: No edema, no calf tenderness NEUROLOGICAL: Grossly intact ASSESSMENT/PLAN: 1. Gynecologic exam normal - ICD9: V72.31, ICD10: Z01.419 (primary diagnosis) - Completed pelvic and breast exam - Encouraged monthly BSE - Follow up for annual exam in one year. - PAP/HPV MRNA E6/E7 RFX HPV 16,18/45 - FABIO SCREENING W MIGUELITO 2. Cervical cancer screening - ICD9: V76.2, ICD10: Z12.4 - PAP/HPV MRNA E6/E7 RFX HPV 16,18/45 3. Breast cancer screening by mammogram - ICD9: V76.12, ICD10: Z12.31 - FABIO SCREENING W MIGUELITO 4. Screening for osteoporosis - ICD9: V82.81, ICD10: Z13.820 - DXA-AXIAL SKELETON 5. Menopause - ICD9: 627.2, ICD10: Z78.0 - DXA-AXIAL SKELETON 6. Screening for colon cancer - ICD9: V76.51, ICD10: Z12.11 7. Hormone imbalance - ICD9: 259.9, ICD10: E34.9 - COMPOUNDED HORMONAL MEDICATION MD Rosalinda Larios documented in this encounterWay[facility]07-22-2022 Miscellaneous Notes* Telephone Encounter - Saniya Jones PA-C - 12/31/2021 2:09 PM EDT Pt is overdue for annual; please call to schedule. Sent last refill. The following approved medication requests have been transmitted electronically. Signed Prescriptions Disp Refills progesterone (CPD) 60 Each 0 Sig: Progesterone Triturate 100mg: Dissolve 1 under the tongue qhs CHECO: No Authorizing Provider: SANIYA JONES PA-C [facility]* Diagnosis Hormone imbalance Unspecified endocrine disorder [facility]* Diagnosis Gynecologic exam normal- Primary Cervical cancer screening Screening for malignant neoplasm of the cervix Breast cancer screening by mammogram Screening for osteoporosis Special screening for osteoporosis Menopause Symptomatic menopausal or female climacteric states Screening for colon cancer Special screening for malignant neoplasms, colon Hormone imbalance Unspecified endocrine disorder [facility]* Diagnosis Encounter for screening for osteoporosis Asymptomatic menopausal state documented in this encounter [facility] note* Diagnosis Encounter for screening mammogram for malignant neoplasm of breast Encounter for gynecological examination (general) (routine) without abnormal findings documented in this encounter [facility] note* Diagnosis Hormone imbalance Unspecified endocrine disorder [facility]* Diagnosis Hormone imbalance- Primary Unspecified endocrine disorder documented in [facility]* Diagnosis Asymptomatic menopausal state- Primary Encounter for screening for osteoporosis Encounter for screening mammogram for malignant neoplasm of breast Encounter for gynecological examination (general) (routine) without abnormal findings Encounter for screening for osteoporosis Asymptomatic menopausal state Encounter for screening mammogram for malignant neoplasm of breast Encounter for gynecological examination (general) (routine) without abnormal findings documented in this encounter [facility] note* Diagnosis Onset Date Resolution Status Insect bite acute Tick bite acute [facility] Work Phone: Evaluation noteNo assessment information available [facility] Work Phone: Evaluation note* Diagnosis 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 documented in this encounter [facility] for referral (narrative)* Diagnostic Procedure Only (Routine) - Pending Review Specialty Diagnoses / Procedures Referred By Jessica nevarez Referred To Contact [facility] Diagnoses Gynecologic exam normal Breast cancer screening by mammogram Procedures FABIO SCREENING W MIGUELITO SCREENING DIGITAL BREAST TOMOSYNTHESIS BI SCREENING MAMMOGRAPHY BI 2-VIEW BREAST INC Silvio Temple MD [address] [address] [facility] [address] [place] [address] Referral ID Status Reason Start Date Expiration Date Visits Requested Visits Authorized [id number] Pending Review Auto-Generat ed Referral 02/17/2023 03/18/2024 1 1 [facility] ([facility]ative)No reason for referral information availableWMcKitrick [facility] Work Phone: Reason for visit Narrative* Diagnostic Procedure Only (Routine) - Closed Specialty Diagnoses / Procedures Referred By Contac t Referred To Contact [facility] Diagnoses Sudden idiopathic hearing loss, right ear Procedures MRI BRAIN BRAIN STEM W/O W/CONTRAST MATERIAL Ashli Roth [address] [facility] [[email or web address] [address] [place] [address] Phone: tel: fax: [place] [address] Referral ID Status Reason Start Date Expiration Date V isits Requested Visits Authorized [id number] Closed OON/Self Pay Override 12/25/2024 01/23/2025 1 1 [facility] Advance Directives No Advanced Directives Records FoundDocuments on File Type Date 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 Advance Directives and Living Will Power of Pathology Technician Documents on File Type Date 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 ACP-Advance Directive ACP-Power of Pathology Technician Summary Purpose Family History No Family History Records FoundNo Family History Records FoundNo Family History Records FoundNo Family History Records FoundNo Family History Records FoundNo Family History Records Found Chief Complaint and Reason for Visit Chief Complaint Possible Tick Bite Reason for Visit Insect bite Tick bite Chief Complaint Admit Date Ear complaints December 05, 2024 4:59 pm Chief Complaint Admit Date Ear complaints December 05, 2024 4:59 pm F/up W/ears December 09, 2024 5:13 pm Reason for Visit Admit Date Clicking tinnitus December 05, 2024 4:59 pm Hearing loss due to cerumen impaction Ju ne 2024 4:59pm Impacted cerumen of both ears December 05, 2024 4:59pm Clicking tinnitus December 09, 2024 5:13 pm Ringing in ears December 09, 2024 5:13 pm Additional Source Comments INFORMATION SOURCE (unrecogn ized section and content) DATE CREATED AUTHOR 11/21/2020 [facility] DATE CREATED AUTHOR AUTHOR'S ORGANIZ ATION 04/16/2023 [facility] DATE CREATED AUTHOR AUTHOR'S ORGANIZ ATION 10/06/2023 [facility] DATE CREATED AUTHOR AUTHOR'S ORGANIZ ATION 01/02/2025 [facility] DATE CREATED AUTHOR AUTHOR'S ORGANIZ ATION 01/15/2025 [place] DATE CREATED AUTHOR AUTHOR'S ORGANIZ ATION 01/23/2025 [facility] Source Comments (unrecognize d section and content) In the event this informatio n is protected by the Federal Confidentiality of Alcohol and Drug Abuse Patient Records regulations: The Federal rules restrict any use of the information to criminally investigate or prosecute any alcohol or drug abuse patient.[facility] CampusIn the event this information is protected by the Federal Confidentiality of Alcohol and Drug Abuse Patient Records regulations: The Federal rules restrict any use of the information to criminally investigate or prosecute any alcohol or drug abuse patient.[facility] CampusIn the event this information is protected by the Federal Confidentiality of Alcohol and Drug Abuse Patient Records regulations: The Federal rules restrict any use of the information to criminally investigate or prosecute any alcohol or drug abuse patient.[facility] CampusIn the event this information is protected by the Federal Confidentiality of Alcohol and Drug Abuse Patient Records regulations: The Federal rules restrict any use of the information to criminally investigate or prosecute any alcohol or drug abuse patient.[facility] CampusIn the event this information is protected by the Federal Confidentiality of Alcohol and Drug Abuse Patient Records regulations: The Federal rules restrict any use of the information to criminally investigate or prosecute any alcohol or drug abuse patient.[facility] CampusIn the event this information is protected by the Federal Confidentiality of Alcohol and Drug Abuse Patient Records regulations: The Federal rules restrict any use of the information to criminally investigate or prosecute any alcohol or drug abuse patient.[facility] CampusIn the event this information is protected by the Federal Confidentiality of Alcohol and Drug Abuse Patient Records regulations: The Federal rules restrict any use of the information to criminally investigate or prosecute any alcohol or drug abuse patient.[facility] CampusIn the event this information is protected by the Federal Confidentiality of Alcohol and Drug Abuse Patient Records regulations: The Federal rules restrict any use of the information to criminally investigate or prosecute any alcohol or drug abuse patient.[facility] CampusIn the event this information is protected by the Federal Confidentiality of Alcohol and Drug Abuse Patient Records regulations: The Federal rules restrict any use of the information to criminally investigate or prosecute any alcohol or drug abuse patient.[facility] CampusIn the event this information is protected by the Federal Confidentiality of Alcohol and Drug Abuse Patient Records regulations: The Federal rules restrict any use of the information to criminally investigate or prosecute any alcohol or drug abuse patient.[facility] CampusIn the event this information is protected by the Federal Confidentiality of Alcohol and Drug Abuse Patient Records regulations: The Federal rules restrict any use of the information to criminally investigate or prosecute any alcohol or drug abuse patient.[facility] Teams (unrecognized sec tion and content) Figure Clerk Relationship Specialty Start Date End Date [place] [address] PCP - General Internal Medicine 10/19/18 Silvio Tuttle MD [address] [email or web address] [address] [id number] Gynecology 09/14/17 Figure Clerk Relationship Specialty Start Date End Date Marisela Hooker DO [address] [place] [address] PCP - General Family Medicine 02/17/23 Silvio Tuttle MD [facility] [email or web address] [address] [address] Gynecology 09/14/17 Figure Clerk Relationship Specialty Start Date End Date Marisela Hooker DO [address] [place] [address] PCP - General Family Medicine 02/17/23 Silvio Tuttle MD [address] [email or web address] [address] [address] Gynecology 09/14/17 Figure Clerk Relationship Specialty Start Date End Date Marisela Hooker DO [address] [place] [address] PCP - General Family Medicine 02/17/23 Silvio Tuttle MD [address] [place] [address] [place] [address] Gynecology 09/14/17 Figure Clerk Relationship Specialty Start Date End Date Marisela Hooker [address] [place] [address] PCP - General Family Medicine 03/06/23 Silvio Tuttle MD [address] [place] [address] [place] [address] Obstetrics and Gynecology 03/06/23 Figure Clerk Relationship Specialty Start Date End Date Marisela Hooker [address] [place] [address] PCP - General Family Medicine 03/06/23 Silvio Tuttle MD [address] [place] [address] [place] [address] Obstetrics and Gynecology 03/06/23 Figure Clerk Relationship Specialty Start Date End Date NeyjimmieMarisela DO [address] [place] [address] PCP - General Family Medicine 02/17/23 Silvio Tuttle MD [address] [place] [address] [place] [address] Gynecology 09/14/17 Figure Clerk Relationship Specialty Start Date End Date Marisela Hooker DO [address] [place] [address] PCP - General Family Medicine 02/17/23 Silvio Tuttle MD [address] [place] [address] [place] [address] Gynecology 09/14/17 Figure Clerk Relationship Specialty Start Date End Date Marisela Hooker DO [address] [place] [address] PCP - General Family Medicine 02/17/23 Silvio Tuttle MD [address] [place] [address] [place] [address] Gynecology 09/14/17 Figure Clerk Relationship Specialty Start Date End Date Marisela Hooker [address] [place], [place] [address] PCP - General Family Medicine 03/06/23 [facility] Tuttle MD [address] [facility] [address] [address] Obstetrics and Gynecology 03/06/23 Team Status: Active Member Role Status Dates Albertina Mcdaniel NP, STAMPING MACHINE OPERATOR-C Primary Care Provider Active Team Status: Inactive Member Role Status Dates Albertina Mcdaniel STAMPING MACHINE OPERATOR, STAMPING MACHINE OPERATOR-C Attending Provider Active Team Status: Inactive Member Role Status Dates Albertina Mcdaniel NP, STAMPING MACHINE OPERATOR-C Primary Care Provider, Attend ing Provider Active Team Status: Inactive Member Role Status Dates Albertina Mcdaniel STAMPING MACHINE OPERATOR, STAMPING MACHINE OPERATOR-C Primary Care Provider Active Start: December 05, 2024 End: December 05, 2024 Albertina Mcdaniel STAMPING MACHINE OPERATOR, STAMPING MACHINE OPERATOR-C Attending Provider Active Start: December 05, 2024 End: December 05, 2024 Albertina Mcdaniel NP, STAMPING MACHINE OPERATOR-C Referring Provider Active Start: December 05, 2024 End: December 05, 2024 Team Status: Active Member Role/Relationship Status Dates Albertina Mcdaniel STAMPING MACHINE OPERATOR, STAMPING MACHINE OPERATOR-C Primary Care Provider Active Team Status: Inactive Member Role/Relationship Status Dates Albertina Mcdaniel STAMPING MACHINE OPERATOR, STAMPING MACHINE OPERATOR-C Primary Care Provider Active Start: December 05, 2024 End: December 05, 2024 Albertina Mcdaniel STAMPING MACHINE OPERATOR, STAMPING MACHINE OPERATOR-C Attending Provider Active Start: December 05, 2024 End: December 05, 2024 Albertina Mcdaniel STAMPING MACHINE OPERATOR, STAMPING MACHINE OPERATOR-C Referring Provider Active Start: December 05, 2024 End: December 05, 2024 Team Status: Inactive Member Role/Relationship Status Dates Albertina Mcdaniel STAMPING MACHINE OPERATOR, STAMPING MACHINE OPERATOR-C Primary Care Provider Active Start: December 09, 2024 End: December 09, 2024 Albertina Mcdaniel STAMPING MACHINE OPERATOR, STAMPING MACHINE OPERATOR-C Attending Provider Active Start: December 09, 2024 End: December 09, 2024 Albertina Mcdaniel STAMPING MACHINE OPERATOR, STAMPING MACHINE OPERATOR-C Referring Provider Active Start: December 09, 2024 End: December 09, 2024 Figure Clerk Relationship Specialty Start Date End Date Marisela Hooker DO [address] [place] [address] PCP - General Family Medicine 02/17/23 Silvio Tuttle MD [address] [facility] [address] [place] [address] Gynecology 09/14/17 Figure Clerk Relationship Specialty Start Date End Date Marisela Hooker DO [address] [place], [place] [address] PCP - General Family Medicine 02/17/23 Silvio Tuttle MD [address] [facility] [address] [place] [address] Gynecology 09/14/17 Figure Clerk Relationship Specialty Start Date End Date Marisela Hooker DO [address] [place] [address] PCP - General Family Medicine 02/17/23 Silvio Tuttle MD [address] [place] [address] [place] [address] Gynecology 09/14/17 Reason for Visit (unrecogniz ed section and content) 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 This clinical summary was aggregated from multiple sources. Caution should be exercised in using it in the provision of clinical care. This summary normalizes information from multiple sources, and as a consequence, information in this document may materially change the coding, format and clinical context of patient data. In addition, data may be omitted in some cases. CLINICAL DECISIONS SHOULD BE BASED ON THE PRIMARY CLINICAL RECORDS. [facility]. provides no warranty or guarantee of the accuracy or completeness of information in this document.
[2025-01-23 13:06] LABS: Vitamin D,25 Hydroxy 113.0 ng/mL (30-100)
== END | disposition home or self-care (01) ==
LOC: BFHLAB 09:55
PROVIDERS: PCP Family Medicine; Visit Provider Family Medicine
DX: E55.9 Vitamin D deficiency, unspecified (principal)
CPT/HCPCS: 36415; 82306

== ENCOUNTER → 2025-01-28 | Outpatient (CLI) | payer OTHER, SELFPAY ==
[2025-01-28 12:30] LABS: Hematocrit 41.2 % (37-47); Hemoglobin 14.0 g/dL (12.0-15.0); Immature Granulocytes Count 0.010 X10^3/uL (0.0-0.0); Mean Corp Hgb Conc 34.0 g/dL (32-36); Mean Corpuscular Volume 93.8 fL (81-99); Mean Platelet Vol. 9.5 fl (6.2-12.0); NRBC Flagged by Analyzer 0 % (0-5); Platelet Count 350 K/mm3 (150-450); RBC Distribution Width CV 12.4 % (11.6-14.6); RBC Distribution Width SD 42.8 fl (35.1-43.9); Red Blood Count 4.39 M/mm3 (4.2-5.4); White Blood Count 4.9 K/mm3 (4.4-11.0)
[2025-01-28 12:58] LABS: AST(SGOT) 23 U/L (<=31); Alanine Aminotransfer ALT/SGPT 16 U/L (<=34); Albumin, Serum 4.5 g/dL (3.5-5.0); Alkaline Phosphatase 106 U/L (35-104); Anion Gap 14 (5-15); BUN 9 mg/dL (4-19); BUN/Creat Ratio 10.2 RATIO (10-20); Calcium,Total 9.4 mg/dL (7.6-11.0); Carbon Dioxide 22.8 mmol/L (21.0-32.0); Chloride 102 mmol/L (98-108); Cholesterol 198 mg/dL (<=200); Globulin 2.5 g/dL (2.2-4.2); Glucose 86 mg/dL (70-99); Low Density Lipoprotein Calc. 123 mg/dL; Potassium 4.2 mmol/L (3.3-5.1); Triglycerides 111 mg/dL; Very Low Density Lipoprotein 22 mg/dL (5-40); cholesterol:hdl ratio screen 3.76
== END | disposition home or self-care (01) ==
LOC: MTLAB 09:45
PROVIDERS: PCP Family Medicine; Referring Provider Nurse Practitioner Family; Visit Provider Nurse Practitioner Family
DX: Z00.01 Encounter for general adult medical examination with abnormal findings (principal)
CPT/HCPCS: 36415; 80053; 80061; 85025

== ENCOUNTER → 2025-04-25 | Outpatient (CLI) | payer BC, SELFPAY ==
--- NOTE | 2025-04-25 06:52 | CT_ITS ---
PROCEDURE: LIMITED CHEST CT CARDIAC ONLY 04/25/2025 REASON FOR EXAM: FAMILY HISTORY OF HEART DISEASE TECHNIQUE: Procedure Code: [id number] Modality: CT Procedure: LIMITED CHEST CT CARDIAC ONLY CONTRAST: None. One or more dose reduction techniques were used (e.g., Automated exposure control, adjustment of the mA and/or kV according to patient size, use of iterative reconstruction technique). RADIATION DOSE SUMMARY: CTDlvol: 12.19 mGy DLP: 219.42 mGycm COMPARISON: None FINDINGS: The heart is nonenlarged. No coronary artery calcification is seen. The visualized portions of the lungs are unremarkable. CT/Limited Chest CT Cardiac Only IMPRESSION: No coronary artery calcification seen. Reading Location: [place] [address]
--- NOTE | 2025-04-25 14:28 | CA.SCORE ---
Calcium Scoring Date of Study:: 04/25/25 Indications Indications: FH Coronary Calcium Scoring: High-resolution Computed Tomographic imaging of the chest was performed on [ 04/25/25], with particular attention paid to the coronary arteries. Images from the examination were analyzed for the presence and extent of coronary artery calcification , using coronary calcium quantification software. The patient tolerated the procedure well and there were no complications. The results of the coronary calcification analysis are provided below. Findings Coronary Artery Left Main (LM): 0 Left Anterior Descending (LAD): 0 Left Circumflex (LCX): 0 Right Coronary Artery (RCA): 0 Total Agatston Score: 0 Percentile Rankin Calcium Scoring Interpretation: Different methods to categorize the overall amount of coronary plaque. Overall amount CAC SIS Visual of coronary plaque P1 Mild -100 <2 1-2 vessels with mild amount of plaque P2 Moderate 101-300 3-4 1-2 vessels with moderate amount, 3 vessels with mild amount of plaque P3 Severe 301-999 5-7 3 vessels with moderate amount, 1 vessel with severe amount of plaque P4 Extensive >1000 >8 2-3 vessels with severe amount of plaque Conclusion: No atherosclerotic plaquing noted
== END | disposition home or self-care (01) ==
LOC: CT 06:47
PROVIDERS: PCP Family Medicine; Referring Provider Family Medicine; Visit Provider Family Medicine
DX: Z82.49 Family history of ischemic heart disease and other diseases of the circulatory system (principal)
CPT/HCPCS: 75571; 76380